=== PATIENT | female | born 1995 | race Two or more races ===

== ENCOUNTER → 2017-12-21 17:47 | Outpatient (CLI) | payer OTHER, SELFPAY ==
[2017-12-21 20:02] LABS: Chlamydia Trachomatis by PCR Negative (Negative); Neisserai gonorrhoeae by PCR Negative (Negative); Probe Check PASS; Sample Adequacy Control PASS; Specimen Processing Control PASS
[2017-12-28 08:48] LABS: HPV Reflexed? NOT INDICATED
== END ==
PROVIDERS: Visit Provider Obstetrics & Gynecology
DX: Z12.4 Encounter for screening for malignant neoplasm of cervix (principal); Z11.3 Encounter for screening for infections with a predominantly sexual mode of transmission
CPT/HCPCS: 87491; 87591; 88175; G0145

== ENCOUNTER → 2018-01-10 16:24 | Outpatient (CLI) | payer OTHER, SELFPAY ==
[2018-01-10 17:21] LABS: Absolute Lymphocyte Count 1.25 X10^3/ul (0.83-4.51); Basophil# 0.02 X10^3/uL; Basophil% 0.2 % (0-1); Eosinophil# 0.04 X10^3/uL; Eosinophils% 0.4 % (0-5); Hematocrit 35.7 % (37-47); Lymphocyte # 1.25 X10^3/ul (4.0); Mean Corp Hgb Conc 33.6 g/gl (32-36); Mean Corpuscular Hgb 31.3 pg (27.0-32.0); Mean Corpuscular Volume 93.2 fL (81-99); Mean Platelet Vol. 10.6 fl (6.2-12.0); Monocyte# 0.65 X10^3/uL; Monocyte% 7.3 % (0-10); Neutrophil # 6.96 X10^3/uL (2.7-7.7); Platelet Count 254 K/mm3 (150-450); RBC Distribution Width SD 43.9 fl (35.1-43.9); Red Blood Count 3.83 M/mm3 (4.2-5.4); White Blood Count 8.9 K/mm3 (4.4-11.0)
[2018-01-10 17:28] LABS: Color, Urine Yellow (Yellow); Glucose, Dipstick Normal (Normal); Ketone-Dipstick Negative (Negative); Leukocyte Esterase-Dipstick 500 /ul (Negative); Nitrite-Dipstick Negative (Negative); Occult Blood-Urine 10 /ul (Negative); Protein-Dipstick Negative (Negative); Urine Bilirubin Dipstick Negative (Negative); Urine Clarity Sl. Cloudy (Clear); Urine Urobilinogen Normal (Normal)
[2018-01-10 18:18] LABS: POSITIVE COUNT NO; POSITIVE DIFFERENTIAL NO; POSITIVE MORPHOLOGY NO
[2018-01-10 18:20] LABS: HIV - WCH Non-Reactive (Nonreactive); Rubella IgG 40.1 IU/mL
[2018-01-10 18:51] LABS: Amphetamine Urine VISTA NEGATIVE (<1000 ng/mL); Barbiturate Urine VISTA NEGATIVE (< 200 ng/mL); Benzodiazepine Urine VISTA NEGATIVE (< 200 ng/mL); Cocaine Urine VISTA NEGATIVE (< 300 ng/mL); Ecstacy Urine VISTA NEGATIVE (< 500 ng/mL); Methadone Urine VISTA NEGATIVE (< 300 ng/mL); PCP Urine VISTA NEGATIVE (< 25 ng/mL); THC Urine VISTA NEGATIVE (< 50 ng/mL); Vista UDS pH Range 6
[2018-01-12 11:43] LABS: HEPATITIS B SURFACE AG Negative (Negative); Hep C Antibodies <0.1 s/co ratio (0.0-0.9)
[2018-01-14 04:35] LABS: Prenatal RPR NONREACTIVE (NONREACTIVE)
== END ==
PROVIDERS: Visit Provider Obstetrics & Gynecology
DX: Z34.81 Encounter for supervision of other normal pregnancy, first trimester (principal)
CPT/HCPCS: 36415; 80307; 81002; 84443; 85025; 86703; 86762; 86803; 87340

== ENCOUNTER → 2018-01-28 13:16 | Outpatient (CLI) | payer OTHER, SELFPAY | PROVIDERS: Visit Provider Obstetrics & Gynecology | DX: Z34.81 Encounter for supervision of other normal pregnancy, first trimester (principal); R42 Dizziness and giddiness | CPT/HCPCS: 93225; 93226 ==

== ENCOUNTER → 2018-05-03 16:06 | Outpatient (CLI) | payer OTHER, SELFPAY ==
[2018-05-03 18:06] LABS: Hemoglobin 10.9 g/dl (12.0-15.0); Mean Corpuscular Hgb 33.3 pg (27.0-32.0); Mean Corpuscular Volume 100.9 fL (81-99); Platelet Count 241 K/mm3 (150-450); RBC Distribution Width SD 49.7 fl (35.1-43.9); Red Blood Count 3.27 M/mm3 (4.2-5.4); Scan Indicated on CBC? Y/N NO; White Blood Count 10.3 K/mm3 (4.4-11.0)
[2018-05-03 18:12] LABS: Glucose Challenge Gest 1H 50g 140 mg/dL (70-140)
== END ==
PROVIDERS: Visit Provider Obstetrics & Gynecology
DX: Z34.82 Encounter for supervision of other normal pregnancy, second trimester (principal)
CPT/HCPCS: 36415; 82950; 85027

== ENCOUNTER → 2018-05-09 07:07 | Outpatient (CLI) | payer OTHER, SELFPAY ==
[2018-05-09 08:01] LABS: Glucose GTT-Gestation. Fasting 93 mg/dL (<105)
[2018-05-09 09:09] LABS: Glucose GTT-Gestational 1 Hr 146 mg/dL (<190)
== END ==
PROVIDERS: Referring Provider Obstetrics & Gynecology; Visit Provider Obstetrics & Gynecology
DX: Z34.83 Encounter for supervision of other normal pregnancy, third trimester (principal); R73.09 Other abnormal glucose
CPT/HCPCS: 36415; 82951; 82952

== ENCOUNTER → 2018-05-24 16:46 | Outpatient (CLI) | payer OTHER, SELFPAY ==
[2018-05-24 18:10] LABS: Hemoglobin A1c 4.5 % (4.2-6.3)
== END ==
PROVIDERS: Visit Provider Obstetrics & Gynecology
DX: Z34.83 Encounter for supervision of other normal pregnancy, third trimester (principal)
CPT/HCPCS: 36415; 83036

== ENCOUNTER 2018-06-04 11:49 | Outpatient (CLI) | payer OTHER, SELFPAY ==
[2018-06-04 11:56] VITALS: BMI 29.9
[2018-06-04 12:13] LABS: Mucous, Urine 0 SEEN /hpf (<or=2+); Red Blood Cells-Urine 0 SEEN /hpf (0-5)
[2018-06-04 12:45] LABS: Color, Urine Yellow (Yellow); Glucose, Dipstick Normal (Normal); Ketone-Dipstick Negative (Negative); Leukocyte Esterase-Dipstick 500 /ul (Negative); Nitrite-Dipstick Negative (Negative); Occult Blood-Urine Negative /ul (Negative); Protein-Dipstick Negative (Negative); Specific Gravity, Urine 1.005 (1.002-1.030); Urine Bilirubin Dipstick Negative (Negative); Urine Clarity Clear (Clear); Urine Urobilinogen Normal (Normal)
[2018-06-04 12:48] LABS: Bacteria RARE /hpf (None Seen); Squamous Epithelial Cells - UA 0-5 SEEN /hpf (5-10); White Blood Cells 5-10 SEEN /hpf (0-5)
[2018-06-04 12:50] LABS: ROM Internal Control Test YES-OK TO RESULT pt. (Internal QC); ROM Patient Test Negative (Negative)
[2018-06-04 13:00] LABS: Fetal Fibronectin Negative
--- NOTE | 2018-06-04 17:11 | OB.TRI.NOTE ---
History of Present Illness Date of Service: 06/04/18 Was patient seen by the physician?: No Reason For Visit: OBT Date of Service: 06/04/18 Final MADHAV: 07/30/18 Final MADHAV Source: US <20 weeks Gestational age: 32 Weeks and 0 Days History of Present Illness: Complains of possible leaking fluid from the vagina today. Some pelvic pressure. Allergies shellfish derived Adverse Reaction (Verified 06/04/18 12:22) Vomiting Laboratory Studies: Laboratory Tests 06/04/18 06/04/18 06/04/18 Range/Units 12:00 12:00 12:00 Urine Color Yellow (Yellow) Urine Clarity Clear (Clear) Urine pH 7.0 (5.0 - 8.0) Ur Specific [place] 1.005 (1.002-1.030) Urine Protein Negative (Negative) mg/dl Urine Glucose (UA) Normal (Normal) mg/dl Urine Ketones Negative (Negative) mg/dl Urine Occult Blood Negative (Negative) /ul Urine Nitrite Negative (Negative) Urine Bilirubin Negative (Negative) mg/dL Urine Urobilinogen Normal (Normal) mg/dl Ur Leukocyte Esterase 500 H (Negative) /ul Urine RBC 0 SEEN (0-5) /hpf Urine WBC 5-10 SEEN (0-5) /hpf Ur Squamous Epith Cells 0-5 SEEN (5-10) /hpf Urine Bacteria RARE (None Seen) /hpf Urine Mucus 0 SEEN (<or=2+) /hpf Vag Amniotic Fld Detect Negative (Negative) Fibronectin Negative Physical Exam General: Alert, Oriented x3, Cooperative, No apparent distress Lungs: Clear to auscultation, Normal air movement Abdomen: Soft, Non Tender, Non-Distended, Gravid, Appropriate for Gestational Age Extremities:: No edema Neurological: Neuro grossly intact 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 FFN negative. UA with possible UTI but soft markers. Treated for UTI. Not in labor and no evidence or PPROM.
--- NOTE | 2018-06-04 17:16 | OB.TRI.HP_ITS ---
History of Present Illness Date of Service: 06/04/18 Was patient seen by the physician?: No Reason For Visit: OBT Date of Service: 06/04/18 Final MADHAV: 07/30/18 Final MADHAV Source: US <20 weeks Gestational age: 32 Weeks and 0 Days History of Present Illness: Complains of possible leaking fluid from the vagina today. Some pelvic pressure. Allergies shellfish derived Adverse Reaction (Verified 06/04/18 12:22) Vomiting Laboratory Studies: Laboratory Tests 06/04/18 06/04/18 06/04/18 Range/Units 12:00 12:00 12:00 Urine Color Yellow (Yellow) Urine Clarity Clear (Clear) Urine pH 7.0 (5.0 - 8.0) Ur Specific [place] 1.005 (1.002-1.030) Urine Protein Negative (Negative) mg/dl Urine Glucose (UA) Normal (Normal) mg/dl Urine Ketones Negative (Negative) mg/dl Urine Occult Blood Negative (Negative) /ul Urine Nitrite Negative (Negative) Urine Bilirubin Negative (Negative) mg/dL Urine Urobilinogen Normal (Normal) mg/dl Ur Leukocyte Esterase 500 H (Negative) /ul Urine RBC 0 SEEN (0-5) /hpf Urine WBC 5-10 SEEN (0-5) /hpf Ur Squamous Epith Cells 0-5 SEEN (5-10) /hpf Urine Bacteria RARE (None Seen) /hpf Urine Mucus 0 SEEN (<or=2+) /hpf Vag Amniotic Fld Detect Negative (Negative) Fibronectin Negative Physical Exam General: Alert, Oriented x3, Cooperative, No apparent distress Lungs: Clear to auscultation, Normal air movement Abdomen: Soft, Non Tender, Non-Distended, Gravid, Appropriate for Gestational Age Extremities:: No edema Neurological: Neuro grossly intact 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 FFN negative. UA with possible UTI but soft markers. Treated for UTI. Not in labor and no evidence or PPROM.
--- OUTSIDE RECORDS SUMMARY | 2018-09-07 10:13 | XMS RPT_ITS ---
:1995 Author Organization OHIP Support Name Relationship Address Phone UE Unavailable Unavailable Unavailable YUDELKA STEWARTLAN Unavailable [address] [place] [address] UE Unavailable Unavailable Unavailable YUDELKA STEWARTLAN Unavailable [address] + [place] [address] UE Unavailable Unavailable Unavailable YUDELKA STEWARTLAN Unavailable [address] + [place] [address] UE Unavailable Unavailable Unavailable YUDELKA STEWARTLAN Unavailable [address] + [place] [address] UE Unavailable Unavailable Unavailable TERRY, HUMBLE Unavailable [address] + [place] [address] UE Unavailable Unavailable Unavailable TERRY, HUMBLE Unavailable [address] + [place] [address] UE Unavailable Unavailable Unavailable YUDELKA STEWARTLAN Unavailable [address] + [place] [address] U Unavailable Unavailable Unavailable YUDELKA STEWARTLAN Unavailable [address] + [place] [address] U Unavailable Unavailable Unavailable YUDELKA STEWARTLAN Unavailable [address] + [place] [address] Care Team Providers Name Role Phone Bayron Blanco Attending Unavailable Bayron Blanco Referring Unavailable JOANNA DENIS Primary Care Unavailable Marisol Vargas Attending Unavailable Marisol Vargas Attending Unavailable Wagner Schwab Attending Unavailable Benekos, Marisol Referring Unavailable Benekos, Marisol Attending Unavailable Benekos, Marisol Referring Unavailable Primay Care Physicia, No Primary Care Unavailable Benekos, Marisol Attending Unavailable Primay Care Physicia, No Primary Care Unavailable Benekos, Marisol Attending Unavailable Primay Care Physicia, No Primary Care Unavailable Benekos, Marisol Attending Unavailable Benekos, Marisol Referring Unavailable Primay Care Physicia, No Primary Care Unavailable Sealmitch, Bayron Attending Unavailable Sealmitch, Bayron Referring Unavailable PROBLEMS PROBLEMS DATE TYPE CONDITION / CODE ATTENDING STATUS SOURCE 07/06/2018 Unknown Z36.85 - Encounter Marisol Vargas Active [facility] for Community screening for Hospital Streptococcus B / Repository Z36.85(ICD-10) 06/06/2018 Unknown Z03.71 - Encounter Bayron Blanco Active [facility] for suspected Community problem with Hospital amniotic cavity and Repository membrane ruled out / Z03.71(ICD-10) 05/24/2018 Unknown Z34.83 - Encounter Marisol Vargas Active [place] for supervision of Community other normal Hospital , third Repository trimester / Z34.83(ICD-10) 05/03/2018 Unknown Z34.82 - Encounter Marisol Vargas Active [place] for supervision of Community other normal Hospital , second Repository trimester / Z34.82(ICD-10) 03/02/2018 Unknown R42 - Dizziness and Wagner Schwab Active [facility] giddiness / Community R42(ICD-10) Hospital Repository 01/10/2018 Unknown Z34.81 - Encounter Marisol Vargas Active [facility] for supervision of Community other normal Hospital , first Repository trimester / Z34.81(ICD-10) 12/23/2017 Unknown Z12.4 - Encounter Bayron Blanco Active [facility] for screening for Community malignant neoplasm Hospital of cervix / Repository Z12.4(ICD-10) 12/23/2017 Unknown Z11.3 - Encounter Bayron Blanco Active [place] for screening for Community infections with a Hospital predominantly Repository sexual mode of transmission / Z11.3(ICD-10) PROCEDURES PROCEDURES No Procedure Records FoundRESULTS RESULTS Observed: 07/06/2018 Status: F Source: [facility] CULTURE, GROUP B 11:00 AM [facility] STREPTOCOCCUS REPOSITORY Comments: VAGINAL/RECTAL CLAIR Culture Group B Beta Streptococcus is not isolated. Performed By: #### M100.1800 #### [facility] [address] [place], [place], [address] URINALYSIS, COMPLETE Collected: 06/04/2018 Status: F Source: [place] 12:[address] [facility] REPOSITORY Order Comment: How was Urine Obtained? APPLICATION INTEGRATION SPECIALIST TO SPECIFY TYPE CODE TESTS RESULT OUT OF RANGE REFERENCE UNITS LAB L400.3000 Yellow COLOR Normal Yellow LAB L400.3050 Clear Normal CLARITY Clear LAB L400.3200 Normal mg/dl Normal GLUCOSE, UR Normal LAB L400.3300 Negative mg/dL Normal BILIRUBIN URINE Negative LAB L400.3400 Negative mg/dl Normal KETONE UR Negative LAB L400.3465 1.002-1.030 Normal SP.GR. DIPSTX 1.005 LAB L400.3550 5.0 - 8.0 pH UR Normal 7.0 LAB L400.3600 Negative mg/dl PROT Normal DIPSTX Negative LAB L400.3700 Normal mg/dl Normal UROBILI Normal LAB L400.3750 Negative Normal NITRITE UR Negative LAB L400.3780 Negative /ul Normal OCCULT BLOOD-UR Negative LAB L400.3800 Negative /ul High LEUK ESTERASE 500 LAB L400.4050 0-5 /hpf WBC Normal 5-10 SEEN LAB L400.4100 0-5 /hpf 0 Normal RBC-UA SEEN LAB L400.4150 5-10 /hpf SQUAM Normal EPI 0-5 SEEN LAB L400.4300 None Seen /hpf Normal BACTERIA RARE LAB L400.4350 <or=2+ /hpf 0 Normal MUCUS, URINE SEEN Performed By: #### L400.0001, L205.0000 #### [facility] [address] [place], [address] FIBRONECTIN Collected: 06/04/2018 Status: F Source: [place] 12:[address] [facility] REPOSITORY TYPE CODE TESTS RESULT OUT OF RANGE REFERENCE UNITS LAB L205.0100 Normal fFN Negative Performed By: #### L400.0001, L205.0000 #### [facility] [address] [place], [address] (ROM) RUPTURE OF Collected: 06/04/2018 Status: F Source: [facility] MEMBRANES 12:[address] [facility] REPOSITORY TYPE CODE TESTS RESULT OUT OF RANGE REFERENCE UNITS LAB L205.1310 Negative Normal ROM Negative Result Comment: Amniotic fluid not present indicates No Rupture of Membranes at time of specimen collection. Performed By: #### L205.1000, M100.0650 #### [facility] [address] [place], [address] Observed: 06/04/2018 Status: F Source: [facility] CULTURE, URINE 12:[address] [facility] REPOSITORY Has pt arrived? Y Urine Culture Culture exhibits no growth. Performed By: #### L205.1000, M100.0650 #### [facility] [address] [place], [address] HEMOGLOBIN A1C Collected: 05/24/2018 Status: F Source: [facility] 4:[address] [facility] REPOSITORY TYPE CODE TESTS RESULT OUT OF RANGE REFERENCE UNITS LAB L501.9985 4.2-6.3 % Normal HGB A1C 4.5 Performed By: #### L501.9985 #### [facility] [address] [place], [address] GESTATIONAL GTT 3HR Collected: 05/09/2018 Status: F Source: [facility] 100G 7:[address] [facility] REPOSITORY Order Comment: Is Patient Fasting? Y TYPE CODE TESTS RESULT OUT OF RANGE REFERENCE UNITS LAB L501.0650 <105 mg/dL Normal GLU 93 GTT-FASTING Result Comment: GLUCOSE TOLERANCE TEST FOR Reference Interval GESTATIONAL DIABETES Fasting <105 mg/dL 1 hour <190 mg/dl 2 hour <165 mg/dl 3 hour <145 mg/dl LAB L501.0660 <190 mg/dL Normal GLU GTT- 1HR 146 Performed By: #### L500.4710 #### [facility] [address] [place], [address] CBC-COMPLETE BLOOD CNT Collected: 05/03/2018 Status: F Source: [facility] NO DIFF 4:[address] [facility] REPOSITORY TYPE CODE TESTS RESULT OUT OF RANGE REFERENCE UNITS LAB L100.1000 4.4-11.0 K/mm3 Normal WBC 10.3 LAB L100.1200 4.2-5.4 M/mm3 Low RBC 3.27 LAB L100.1300 12.0-15.0 g/dl Low HGB 10.9 LAB L100.1400 37-47 % Low HCT 33.0 LAB L100.1500 81-99 fL High MCV 100.9 LAB L100.1600 27.0-32.0 pg High MCH 33.3 LAB L100.1700 32-36 g/gl Normal MCHC 33.0 LAB L100.1810 11.6-14.6 % Normal RDW CV 14.0 LAB L100.1820 35.1-43.9 fl High RDW SD 49.7 LAB L100.1900 150-450 K/mm3 Normal PLT 241 LAB L100.2000 6.2-12.0 fl Normal MPV 11.0 Performed By: #### L100.0500 #### [facility] [address] [place], [address] GLUCOSE CHALLENGE GEST Collected: 05/03/2018 Status: F Source: [place] 1H 50G 4:[address] [facility] REPOSITORY TYPE CODE TESTS RESULT OUT OF RANGE REFERENCE UNITS LAB L501.0250 70-140 mg/dL Normal GLU GEST 140 50g 1H Performed By: #### L501.0250 #### [facility] [address] [place], [address] OFFICE VISIT (FAMILY Observed: 02/08/2018 Status: UNK Source: [facility]) 2:43 PM [facility] REPOSITORY Chief Complaint Visit For: Other New Patient establishing care, wants to discuss depression, needs work form filled out. 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 Cardiovascular: palpitations, but no chest pain and no syncope. Respiratory: no cough, no postural nocturnal dyspnea, no shortness of breath during exertion and no wheezing. Gastrointestinal:. IBS - intermittent problem. Genitourinary:. hx of recurrent UTI when younger. Integumentary: no new skin lesions, no rashes and no skin wound. The patient presents with complaints of headache (hx migraines - 1-2 per month no hx of neurology). Psychiatric: depression, but no anxiety . Has very mild sleep apnea. 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) History of Lyme disease (V12.09) (Z86.19) History of Low blood pressure reading (796.3) (R03.1) Surgical History History of Oral Surgery Tooth Extraction [place] Tooth Family History Family history of gestational diabetes mellitus (GDM) (V18.0) (Z83.3) Family history of migraine headaches (V17.2) (Z82.0) Family history of Chronic mental illness Family history of autoimmune disorder (V19.8) (Z83.2) Family history of thyroid disease (V18.19) (Z83.49) Family history of autoimmune disorder (V19.8) (Z83.2) Family history of thyroid disease (V18.19) (Z83.49) Social History No alcohol use Non-smoker (V49.89) (Z78.9) Allergies Shellfish Recorded By: Jemima García; 02/08/2018 2:11:30 PM Current Meds Levothyroxine Sodium 50 MCG Oral Tablet; Therapy: (Recorded:72Hqt5260) to Recorded Dispense: 0 Days ; #: Sufficient TABS; Refill: 0; EVA = N; Record; Last Updated By: Jemima García; 02/08/2018 2:11:30 PM Pre-Noelle TABS; Therapy: (Recorded:86Xcr0774) to Recorded Dispense: 0 Days ; #: Sufficient TABS; Refill: 0; EVA = N; Record; Last Updated By: Jemima García; 02/08/2018 2:11:30 PM Zoloft 50 MG Oral Tablet; Therapy: (Recorded:93Ytj7847) to Recorded Dispense: 0 Days ; #: Sufficient TABS; Refill: 0; EVA = N; Record; Last Updated By: Jemima García; 02/08/2018 2:11:30 PM Vitals Vital Signs Recorded: 51Ykt6644 02:11PM Iwbnbmgbeqt83.4 F Heart Ucof730 Hiygttqmslf47 Jeemgxtd45 Qznwkapkn73 Height4 ft 10 in Hadusm567 lb BMI Tsvggnngor32.13 BSA Calculated1.49 O2 Empqvdzoox36 Physical Exam NAD Neck supple - no LAD or TM Lungs clear CV reg - no M, normal pedal pulses Ext without edema Skin clear without ulcerations Normal mood and affect Diagnoses/Problems Family history of gestational diabetes mellitus (GDM) (V18.0) (Z83.3) : Mother Adult hypothyroidism (244.9) (E03.9) Encounter for preventive health examination (V70.0) (Z00.00) Depression, unspecified depression type (311) (F32.9) Provider Impressions Adacel was done in 2010 Recent labs through ENTRY LEVEL ASSISTANT MANAGER documented immunity to MMR Patient Discussion/Summary Form completed for work - please call when refills are due. End of Encounter Meds Levothyroxine Sodium 50 MCG Oral Tablet; Therapy: (Recorded:97Pbv7790) to Recorded Pre-Noelle TABS; Therapy: (Recorded:36Ylv9623) to Recorded Zoloft 50 MG Oral Tablet (Sertraline HCl); Therapy: (Recorded:11Ufs0446) to Recorded Signatures Electronically signed by : Joanna Escoto MD; Feb 08 2018 2:43PM EST (Author) URINE DRUG SCREEN Collected: 01/10/2018 Status: F Source: [facility] (ELSY) 4:[address] [facility] REPOSITORY Order Comment: List of Drugs Taken or Suspected? UNK TYPE CODE TESTS RESULT OUT OF RANGE REFERENCE UNITS LAB L505.0075 TO BE Normal CONFIRMED Result Comment: CONFIRMATORY TESTING FOR ALL POSITIVE URINE DRUG SCREEN RESULTS WILL ONLY BE SENT OUT UPON PHYSICIAN ORDER. VISTA Urine Drug Screen methods provide only preliminary analytical test results. A more specific alternate chemical method must be used in order to obtain a confirmed analytical result. Gas chromatography/mass spectrometery (GC/MS) is the preferred confirmatory method. Clinical consideration and professional judgement should be applied to any drug of abuse test result, particularly when preliminary positive results are used. URINE TCA TESTING MUST BE ORDERED SEPARATELY. USE TEST MNEMONIC: [facility] LAB L505.5005 VISTA UDS PH 6 Normal LAB L505.5015 <1000 ng/mL AMPHETAMINES Normal NEGATIVE LAB L505.5025 < 200 ng/mL BARBITIURATES Normal NEGATIVE LAB L505.5035 < 200 ng/mL BENZODIAZIPINE Normal NEGATIVE LAB L505.5045 < 300 ng/mL COCAINE Normal NEGATIVE LAB L505.5055 < 500 ng/mL ECSTACY Normal NEGATIVE LAB L505.5065 < 300 ng/mL METHADONE Normal NEGATIVE LAB L505.5075 < 300 ng/mL OPIATES Normal NEGATIVE LAB L505.5085 < 25 ng/mL PCP Normal NEGATIVE LAB L505.5095 < 50 ng/mL THC Normal NEGATIVE Performed By: #### L505.5000 #### [facility] [address] [place], [address] THYROID STIM HORMONE Collected: 01/10/2018 Status: F Source: [place] (TSH) 4:[address] [facility] REPOSITORY TYPE CODE TESTS RESULT OUT OF RANGE REFERENCE UNITS LAB L501.9520 0.358-3.74 uIU/mL Normal TSH 2.00 Performed By: #### L501.9520 #### [facility] [place], [address] URINALYSIS, ROUTINE Collected: 01/10/2018 Status: F Source: [place] (DIPSTICK) 4:[address] [facility] REPOSITORY Order Comment: How was Urine Obtained? Urine, Random TYPE CODE TESTS RESULT OUT OF RANGE REFERENCE UNITS LAB L400.3000 Yellow COLOR Normal Yellow LAB L400.3050 Clear Normal CLARITY Sl. Cloudy LAB L400.3200 Normal mg/dl Normal GLUCOSE, UR Normal LAB L400.3300 Negative mg/dL Normal BILIRUBIN URINE Negative LAB L400.3400 Negative mg/dl Normal KETONE UR Negative LAB L400.3465 1.002-1.030 Normal SP.GR. DIPSTX 1.010 LAB L400.3550 5.0 - 8.0 pH UR Normal 7.0 LAB L400.3600 Negative mg/dl PROT Normal DIPSTX Negative LAB L400.3700 Normal mg/dl Normal UROBILI Normal LAB L400.3750 Negative Normal NITRITE UR Negative LAB L400.3780 Negative /ul High 10 OCCULT BLOOD-UR LAB L400.3800 Negative /ul High LEUK ESTERASE 500 Performed By: #### L400.2010 #### [facility] [address] [place], [place], [id number] CBC W/DIFF, AUTOMATED Collected: 01/10/2018 Status: F Source: [place] 4:[address] [facility] REPOSITORY TYPE CODE TESTS RESULT OUT OF RANGE REFERENCE UNITS LAB L100.1000 4.4-11.0 K/mm3 Normal WBC 8.9 LAB L100.1200 4.2-5.4 M/mm3 Low RBC 3.83 LAB L100.1300 12.0-15.0 g/dl Normal HGB 12.0 LAB L100.1400 37-47 % Low HCT 35.7 LAB L100.1500 81-99 fL Normal MCV 93.2 LAB L100.1600 27.0-32.0 pg Normal MCH 31.3 LAB L100.1700 32-36 g/gl Normal MCHC 33.6 LAB L100.1810 11.6-14.6 % Normal RDW CV 13.0 LAB L100.1820 35.1-43.9 fl Normal RDW SD 43.9 LAB L100.1900 150-450 K/mm3 Normal PLT 254 LAB L100.2000 6.2-12.0 fl Normal MPV 10.6 LAB L100.2100 47-70 % High NEUT% 78.0 LAB L100.2200 19-41 % Low LY% 14.0 LAB L100.2300 0-10 % Normal MONO% 7.3 LAB L100.2400 0-5 % Normal EO% 0.4 LAB L100.2500 0-1 % Normal BASO% 0.2 LAB L100.2550 0.0-0.9 % Normal IM GRAN % 0.100 Result Comment: IG% - Immature Granulocytes (promyelocytes, myelocytes and metamyelocytes) > 1% indicates that a LEFT SHIFT is Present. LAB L100.2620 2.0-7.7 X10 3/uL Normal Absolute Neut 7.0 LAB L100.2720 0.83-4.51 X10 3/ul Normal Absolute Lymph 1.25 Performed By: #### L100.0100 #### [facility] [address] [place], [place], [id number] RUBELLA IGG Collected: 01/10/2018 Status: F Source: [place] 4:[address] [facility] REPOSITORY TYPE CODE TESTS RESULT OUT OF RANGE REFERENCE UNITS LAB L509.4000 IU/mL Normal Rubella IgG 40.1 Result Comment: Antibody results Interpretation of Immune Status < 5 IU/ml Presumed Non-immune 5 - < 10 IU/ml Equivocal > or = 10 IU/ml Presumed Immune Performed By: #### L509.4000, L3890.6005 #### [facility] [address] [place], [place], [address] HIV - [facility] Collected: 01/10/2018 Status: F Source: [place] 4:[address] [facility] REPOSITORY TYPE CODE TESTS RESULT OUT OF RANGE REFERENCE UNITS LAB L3890.6005 Nonreactive Normal HIV - [facility] Non-Reactive Performed By: #### L509.4000, L3890.6005 #### [facility] [facility] [place], [place], [address] T AND S-NO Collected: 01/10/2018 Status: F Source: [place] CHARGE W/PNP 4:[address] [facility] REPOSITORY Order Comment: Reason for Type AND Screen/Red Cells: Surgery? N TYPE CODE TESTS RESULT OUT OF RANGE REFERENCE UNITS LAB B10.0800 O Normal BLOOD POSITIVE TYPE GEL LAB B100.4050 Normal Ab SCREEN NEGATIVE GEL Performed By: #### B100.7550 #### [facility] [place], [place], [address] HEPATITIS B SURFACE Collected: 01/10/2018 Status: F Source: [place] AG 4:[address] [facility] REPOSITORY TYPE CODE TESTS RESULT OUT OF RANGE REFERENCE UNITS LAB L3100.0400 Negative Normal HB Negative SURF AG Result Comment: Performed at: - [facility] [id number] Supervisor Electronics Inspection: Salo Aponte PhD, Phone: [phone] Performed By: #### L3100.0390, L3100.0625 #### [facility] (refer to report for specific site) refer to report for address and phone number HEPATITIS C ANTIBODIES Collected: 01/10/2018 Status: F Source: [place] 4:[address] [facility] REPOSITORY TYPE CODE TESTS RESULT OUT OF RANGE REFERENCE UNITS LAB L3100.0650 0.0-0.9 s/co ratio Normal HEP C AB <0.1 Result Comment: Negative: < 0.8 Indeterminate: 0.8 - 0.9 Positive: > 0.9 The CDC recommends that a positive HCV antibody result be followed up with a HCV Nucleic Acid Amplification test (747320). Performed By: #### L3100.0390, L3100.0625 #### [facility] (refer to report for specific site) refer to report for address and phone number RPR Collected: 01/10/2018 Status: F Source: [place] 4:[address] [facility] REPOSITORY TYPE CODE TESTS RESULT OUT OF REFERENCE UNITS RANGE LAB L700.5100 NONREACTIVE Normal RPR NONREACTIVE Performed By: #### L700.5100 #### [facility] [address] [place], [address] CT/NG [facility] BY PCR Collected: 12/21/2017 Status: F Source: [place] 2:[address] [facility] REPOSITORY TYPE CODE TESTS RESULT OUT OF RANGE REFERENCE UNITS LAB L8200.2100 Negative Normal Chlam Negative Trac PCR LAB L8200.2200 Negative Normal NG by Negative PCR Performed By: #### L8200.2000 #### [facility] [address] [place], [address] PAP I-G W/RFX HRHPV Collected: 12/21/2017 Status: F Source: [place] 2:[address] [facility] REPOSITORY Order Comment: CYTOLOGY INFORMATION: - CLINICAL INFORMATION: - DATE LMP/MENOPAUSE: LMP - COLLECTION VIAL: Thin Prep Vial - ENTRY LEVEL ASSISTANT MANAGER SOURCE: CERVICAL/ENDOCERVICAL - COLLECTION TECHNIQUE: BRUSH/SPATULA Specimen Comment: [id number] Specimen Comment: No. of containers..01 ThinPrep Vial TYPE CODE TESTS RESULT OUT OF RANGE REFERENCE UNITS LAB L7400.0800 . Normal DIAGN Comment Result Comment: NEGATIVE FOR INTRAEPITHELIAL LESION AND MALIGNANCY. THIS SPECIMEN WAS RESCREENED PART OF OUR PHOTOGRAPHIC EQUIPMENT INSPECTOR PROGRAM. LAB L7400.0900 . Normal ADEQ Comment Result Comment: Satisfactory for evaluation. No endocervical component is identified. An endocervical component is not commonly seen in the patient. LAB L7400.1400 . Normal PERFORM Comment Result Comment: Leesa Honeycutt, Sash Repairer ([facility]) LAB L7400.1500 . Normal QC Comment REV Result Comment: Radha Sen, Sash Repairer ([facility]) LAB L7400.2575 . Normal TEST METHOD Comment Result Comment: This liquid based ThinPrep(R) pap test was screened with the use of an image guided system. LAB L7400.2600 . Normal . COMM LAB L7400.2700 . Normal PAPSMR Comment Result Comment: The Pap smear is a screening test designed to aid in the detection of premalignant and malignant conditions of the uterine cervix. It is not a diagnostic procedure and should not be used as the sole means of detecting cervical cancer. Both false-positive and false-negative reports do occur. LAB L7400.2800 . Normal HPV RFLX Comment Result Comment: The HPV DNA reflex criteria were not met with this specimen result therefore, no HPV testing was performed. Performed at: [facility] [id number] Supervisor Electronics Inspection: Melissa Koehler MD, Phone: [phone] Performed By: #### L7400.0350 #### [facility] (refer to report for specific site) refer to report for address and phone number ALLERGIES ALLERGIES DATE TYPE / CODE NAME / CODE REACTION SEVERITY SOURCE 06/04/2018 Drug shellfish Vomiting Unknown [facility] Allergy/416 derived/[id number] [facility] 033065(SNOM 54(RXNORM) Repository ED CT) ENCOUNTERS ENCOUNTERS ADMIT/DISCHARGE ACCOUNT ADMITTING ENCOUNTER LOCATION SOURCE NUMBER CLASS 07/06/2018 [id number] Ambulatory [facility] 2 [facility] ing:LABSPEC Repository 06/04/2018/ [id number] Ambulatory [facility] 8 3 [facility] ing:WPOUTRoom Repository : OBT06 05/24/2018 [id number] Ambulatory [place] [facility] 6 [facility] ing:WOBLAB Repository 05/09/2018 [id number] Ambulatory [facility] 3 [facility] ing:LAB Repository 05/03/2018 [id number] Ambulatory [place] [facility] 7 [facility] ing:WOBLAB Repository 01/28/2018 [id number] Ambulatory BMSBuilding:W [facility] 3 [facility] Repository 01/28/2018 [id number] Ambulatory [place] [facility] 3 [facility] ing:PSN Repository 01/10/2018 [id number] Ambulatory [place] [facility] 5 [facility] ing:WOBLAB Repository 12/21/2017 [id number] Ambulatory [place] 3 [facility] ing:LABSPEC Repository PAYERS PAYERS ENCOUNTER GUARANTOR PAYER SUBSCRIBER SOURCE 07/06/2018 LAITH A Primary HUMBLE WYNNEDOB: [facility] [id number] Insurance:[id number] [id number] Repository [place], [place] Date:0672-86-09VY [address] [address]Qbk: [phone], [place] [phone] () [phone]: 07/06/2018 Secondary NOT GIVENUNK [place] Insurance:SELF PAY [facility] Number: Effective Repository Date:2018-07-06 06/04/2018 LAITH A Primary HUMBLE WYNNEDOB: [facility] [id number] Insurance:[facility] [id number]. [facility] Number: [facility] [id number] Repository [place], [place] Date:8497-20-03AC [address] [address]Eke: [phone], [place] [phone] () [phone]: 06/04/2018 Secondary NOT GIVENUNK [facility] Insurance:SELF PAY [facility] Number: Effective Repository Date:2018-06-04 05/24/2018 LAITH A Primary HUMBLE WYNNEDOB: [place] [id number] [facility] [id number]. [facility] Number: [facility] [id number] Repository [place] Date:3530-67-53RJ [address] [address]Aft: [phone], [place] [phone] () [phone]: 05/24/2018 Secondary NOT GIVENUNK [place] Insurance:SELF PAY [facility] Number: Effective Repository Date:2018-05-24 05/09/2018 LAITH A Primary HUMBLE WYNNEDOB: [facility] [id number] Insurance:[facility] [id number]. [facility] Medical Center Number: [facility] [id number] Repository [place], [place] Date:2246-60-13ZJ [address]Toc: (147) [phone], [place] [phone] () [phone]: 05/09/2018 Secondary NOT GIVENUNK [place] Insurance:SELF PAY [facility] Hospital Number: Effective Repository Date:2018-05-04 05/03/2018 LAITH A Primary HUMBLE WYNNEDOB: [place] [id number] Insurance:GPATPA [id number] [id number] Repository [place] Date:1619-13-63VQ [address] [address]Bmu: [phone]) [phone], [place] [phone] () [phone]: 05/03/2018 Secondary NOT GIVENUNK [place] Insurance:SELF PAY [facility] Hospital Number: Effective Repository Date:2018-05-03 01/28/2018 LAITH A Primary HUMBLE WYNNEDOB: [place] [id number] Insurance:GPATPA [id number] [facility] Number: Hospital DRUNIT [id number] Repository [place], [place] Date:1890-00-34PC [address] [address]Gwg: (103) [phone], [place] [phone] () [phone]: 01/28/2018 Secondary NOT GIVENUNK [place] Insurance:SELF PAY [facility] Hospital Number: Effective Repository Date:2018-01-28 01/28/2018 LAITH A Primary HUMBLE WYNNEDOB: [place] [id number] Insurance:GPATPA [id number] Community [employer] CERCOPolicy Number: [facility] [id number] Repository [place] Date:6195-95-42XE [address] [address]Xjo: [phone] [id number], [place] [phone] (HP) [phone]: 01/28/2018 Secondary NOT GIVENUNK [place] Insurance:SELF PAY [facility] Hospital Number: Effective Repository Date:2018-01-28 01/10/2018 LAITH [id number] Primary HUMBLE SOLOMON [place] [employer]AD[employer] Insurance:[facility] DRUNIT CERCOPolic Number: [place], [place] [id number] Repository [address]Oit: ([phone]) Date:6501-08-36QR [phone] (HP) [id number], [place] [address]GZ: 01/10/2018 Secondary NOT GIVENUNK [place] Insurance:SELF PAY [facility] Hospital Number: Effective Repository Date:2018-01-10 12/21/2017 LAITH [id number] Primary HUMBLEBO CARBAJAL [place] MEADOWCREELLI Insurance:GPAA [facility] Number: [place], [place] [id number] Repository [address]Wul: ([phone]) Date:3951-32-14MF [phone] (HP) [id number], [place] [address]UU: 12/21/2017 Secondary NOT GIVENUNK [place] Insurance:SELF PAY [facility] Hospital Number: Effective Repository Date:2017-12-21
== END 2018-06-04 13:40 | disposition home or self-care (01) ==
LOC: WPOUT 11:52 → WP 11:53
PROVIDERS: Referring Provider Obstetrics & Gynecology; Visit Provider Obstetrics & Gynecology
DX: Z03.71 Encounter for suspected problem with amniotic cavity and membrane ruled out (principal); O26.893 Other specified pregnancy related conditions, third trimester; R10.2 Pelvic and perineal pain; Z3A.32 32 weeks gestation of pregnancy
CPT/HCPCS: 59050; 81001; 82731; 84112; 87086; 99218; G0378

== ENCOUNTER → 2018-07-06 13:30 | Outpatient (CLI) | payer OTHER, SELFPAY ==
--- OUTSIDE RECORDS SUMMARY | 2018-09-10 10:11 | XMS RPT_ITS ---
:1995 Author Organization OHIP Support Name Relationship Address Phone UE Unavailable Unavailable Unavailable HUMBLE STEWART Unavailable [address] + [place] [address] UE Unavailable Unavailable Unavailable YUDELKA STEWARTLAN Unavailable [address] + [place] [address] UE Unavailable Unavailable Unavailable YUDELKA STEWARTLAN Unavailable [address] + [place] [address] UE Unavailable Unavailable Unavailable YUDELKA STEWARTLAN Unavailable [address] + [place] [address] UE Unavailable Unavailable Unavailable YUDELKA STEWARTLAN Unavailable [address] + [place] [address] UE Unavailable Unavailable Unavailable YUDELKA STEWARTLAN Unavailable [address] + [place] [address] UE Unavailable Unavailable Unavailable HUMBLE STEWART Unavailable [address] + [place] [address] U Unavailable Unavailable Unavailable YUDELKA STEWARTLAN Unavailable [address] + [place] [address] U Unavailable Unavailable Unavailable YUDELKA STEWARTLAN Unavailable [address] + [place] [address] Care Team Providers Name Role Phone Bayron Blanco Attending Unavailable Bayron Blanco Referring Unavailable JOANNA DENIS Primary Care Unavailable Marisol Vargas Attending Unavailable Bayron Blanco Attending Unavailable Bayron Blanco Referring Unavailable Benekos, Marisol Attending Unavailable Benekos, Marisol Attending Unavailable Benekos, Marisol Referring Unavailable Primay Care Physicia, No Primary Care Unavailable Wagner Schwab Attending Unavailable Benekos, Marisol Referring Unavailable Benekos, Marisol Attending Unavailable Primay Care Physicia, No Primary Care Unavailable Benekos, Marisol Attending Unavailable Benekos, Marisol Referring Unavailable Primay Care Physicia, No Primary Care Unavailable Benekos, Marisol Attending Unavailable Primay Care Physicia, No Primary Care Unavailable PROBLEMS PROBLEMS DATE TYPE CONDITION / CODE ATTENDING STATUS SOURCE 07/06/2018 Unknown Z36.85 - Encounter Marisol Vargas Active [place] for Community screening for Hospital Streptococcus B / Repository Z36.85(ICD-10) 06/06/2018 Unknown Z03.71 - Encounter Bayron Blanco Active [place] for suspected Community problem with Hospital amniotic cavity and Repository membrane ruled out / Z03.71(ICD-10) 05/24/2018 Unknown Z34.83 - Encounter Marisol Vargas Active [place] for supervision of Community other normal Hospital , third Repository trimester / Z34.83(ICD-10) 05/03/2018 Unknown Z34.82 - Encounter Marisol Vargas Active [place] for supervision of Community other normal Hospital [...] Unknown Z11.3 - Encounter Bayron Blanco Active [place] for screening for Community infections with a Hospital predominantly Repository sexual mode of transmission / Z11.3(ICD-10) PROCEDURES PROCEDURES No Procedure Records FoundRESULTS RESULTS Observed: 07/06/2018 Status: F Source: [place] CULTURE, GROUP B 11:00 AM [facility] STREPTOCOCCUS REPOSITORY Comments: VAGINAL/RECTAL CLAIR Culture Group B Beta Streptococcus is not isolated. Performed By: #### M100.1800 #### [facility] Laboratory [address] [place], [place], [address] URINALYSIS, COMPLETE Collected: 06/04/2018 Status: F Source: [place] 12:00 PM [facility] REPOSITORY Order Comment: How was Urine Obtained? COLD ROLL OPERATOR TO SPECIFY TYPE CODE TESTS RESULT OUT [...] SEEN Performed By: #### L400.0001, L205.0000 #### [facility] Laboratory [address], [address] FIBRONECTIN Collected: 06/04/2018 Status: F Source: [place] 12:00 PM [facility] REPOSITORY TYPE CODE TESTS RESULT OUT OF RANGE REFERENCE UNITS LAB L205.0100 Normal fFN Negative Performed By: #### L400.0001, L205.0000 #### [facility] Laboratory [address] [place], [address] (ROM) RUPTURE OF Collected: 06/04/2018 Status: F Source: [place] MEMBRANES 12:00 PM [facility] REPOSITORY TYPE CODE TESTS RESULT OUT OF RANGE REFERENCE UNITS LAB L205.1310 Negative Normal ROM Negative Result Comment: Amniotic fluid not present indicates No Rupture of Membranes at time of specimen collection. Performed By: #### L205.1000, M100.0650 #### [facility] Laboratory [address] [place], [address] Observed: 06/04/2018 Status: F Source: [place] CULTURE, URINE 12:00 PM [facility] REPOSITORY Has pt arrived? Y Urine Culture Culture exhibits no growth. Performed By: #### L205.1000, M100.0650 #### [facility] Laboratory [address] [place], [address] HEMOGLOBIN A1C Collected: 05/24/2018 Status: F Source: [place] 4:50 PM [facility] REPOSITORY TYPE CODE TESTS RESULT OUT OF RANGE REFERENCE UNITS LAB L501.9985 4.2-6.3 % Normal HGB A1C 4.5 Performed By: #### L501.9985 #### [facility] Laboratory [address] [place], [address] GESTATIONAL GTT 3HR Collected: 05/09/2018 Status: F Source: [place] 100G 7:15 AM [facility] REPOSITORY Order Comment: Is Patient Fasting? Y TYPE CODE TESTS RESULT OUT OF RANGE REFERENCE UNITS LAB L501.0650 <105 mg/dL Normal GLU 93 GTT-FASTING Result Comment: GLUCOSE TOLERANCE TEST FOR Reference Interval GESTATIONAL DIABETES Fasting <105 mg/dL 1 hour <190 mg/dl 2 hour <165 mg/dl 3 hour <145 mg/dl LAB L501.0660 <190 mg/dL Normal GLU GTT- 1HR 146 Performed By: #### L500.4710 #### [facility] Laboratory [address] [place], [address] CBC-COMPLETE BLOOD CNT Collected: 05/03/2018 Status: F Source: [place] NO DIFF 4:15 PM [facility] REPOSITORY TYPE CODE TESTS RESULT OUT OF [...] MPV 11.0 Performed By: #### L100.0500 #### [facility] Laboratory [address] [place], [address] GLUCOSE CHALLENGE GEST Collected: 05/03/2018 Status: F Source: [place] 1H 50G 4:15 PM [facility] REPOSITORY TYPE CODE TESTS RESULT OUT OF RANGE REFERENCE UNITS LAB L501.0250 70-140 mg/dL Normal GLU GEST 140 50g 1H Performed By: #### L501.0250 #### [facility] Laboratory [address], [address] OFFICE VISIT (FAMILY Observed: 02/08/2018 Status: UNK Source: [facility]) 2:43 PM [facility] REPOSITORY Chief Complaint Visit For: Other New Patient establishing care, wants to discuss depression, needs work form filled out. 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 ANALYST was positive for immunity for MMR 15 [...] History History of Oral Surgery Tooth Extraction [place] Family History Family history of gestational [...] Levothyroxine Sodium 50 MCG Oral Tablet; Therapy: (Recorded:73Kdk4927) to Recorded Dispense: 0 Days ; #: Sufficient TABS; Refill: 0; EVA = N; Record; Last Updated By: Jemima García; 02/08/2018 2:11:30 PM Pre-Noelle TABS; Therapy: (Recorded:69Mik6765) to Recorded Dispense: 0 Days ; #: Sufficient TABS; Refill: 0; EVA = N; Record; Last Updated By: Jemima García; 02/08/2018 2:11:30 PM Zoloft 50 MG Oral Tablet; Therapy: (Recorded:28Hei4092) to Recorded Dispense: 0 Days ; #: Sufficient TABS; Refill: 0; EVA = N; Record; Last Updated By: Jemima García; 02/08/2018 2:11:30 PM Vitals Vital Signs Recorded: 13Nky1236 02:11PM Tzmqdwvfknx56.4 F Heart Pzpe758 Xddqyikwgsw14 Qzhjsfqs43 Gvzimblnp14 Height4 ft 10 in Shqmhk803 lb BMI Psyvecdcln71.13 BSA Calculated1.49 O2 Prvhbowqhs02 Physical Exam NAD Neck supple - no [...] was done in 2010 Recent labs through STREET SWEEPER documented immunity to MMR Patient Discussion/Summary Form completed for work - please call when refills are due. End of Encounter Meds Levothyroxine Sodium 50 MCG Oral Tablet; Therapy: (Recorded:79Okt0557) to Recorded Pre-Noelle TABS; Therapy: (Recorded:82Kfg9696) to Recorded Zoloft 50 MG Oral Tablet (Sertraline HCl); Therapy: (Recorded:93Vdw8231) to Recorded Signatures Electronically signed by : Joanna Escoto MD; Feb 08 2018 2:43PM EST (Author) URINE DRUG SCREEN Collected: 01/10/2018 Status: F Source: [place] (ELSY) 4:25 PM [facility] REPOSITORY Order Comment: List of Drugs Taken [...] Normal NEGATIVE Performed By: #### L505.5000 #### [facility] Laboratory [address] [place], [address] THYROID STIM HORMONE Collected: 01/10/2018 Status: F Source: [place] (TSH) 4:25 PM [facility] REPOSITORY TYPE CODE TESTS RESULT OUT OF RANGE REFERENCE UNITS LAB L501.9520 0.358-3.74 uIU/mL Normal TSH 2.00 Performed By: #### L501.9520 #### [facility] Laboratory [facility] [place], [address] URINALYSIS, ROUTINE Collected: 01/10/2018 Status: F Source: [place] (DIPSTICK) 4:25 PM [facility] REPOSITORY Order Comment: How was Urine Obtained? [...] ESTERASE 500 Performed By: #### L400.2010 #### [facility] Laboratory [address] [place], [place], [id number] CBC W/DIFF, AUTOMATED Collected: 01/10/2018 Status: F Source: [place] 4:25 PM [facility] REPOSITORY TYPE CODE TESTS RESULT OUT OF [...] Lymph 1.25 Performed By: #### L100.0100 #### [facility] Laboratory [address] [place], [place], [address] RUBELLA IGG Collected: 01/10/2018 Status: F Source: [place] 4:25 PM [facility] REPOSITORY TYPE CODE TESTS RESULT OUT OF RANGE REFERENCE UNITS LAB L509.4000 IU/mL Normal Rubella IgG 40.1 Result Comment: Antibody results Interpretation of Immune Status < 5 IU/ml Presumed Non-immune 5 - < 10 IU/ml Equivocal > or = 10 IU/ml Presumed Immune Performed By: #### L509.4000, L3890.6005 #### [facility] Laboratory [address] [place], [place], [address] HIV - WCH Collected: 01/10/2018 Status: F Source: [place] 4:25 PM [facility] REPOSITORY TYPE CODE TESTS RESULT OUT OF RANGE REFERENCE UNITS LAB L3890.6005 Nonreactive Normal HIV - W[facility] Non-Reactive Performed By: #### L509.4000, L3890.6005 #### [facility] Laboratory [facility] [facility] [place], [place], [address] T AND S-NO Collected: 01/10/2018 Status: F Source: [place] CHARGE W/PNP 4:25 PM [facility] REPOSITORY Order Comment: Reason for Type AND Screen/Red Cells: Surgery? N TYPE CODE TESTS RESULT OUT OF RANGE REFERENCE UNITS LAB B10.0800 O Normal BLOOD POSITIVE TYPE GEL LAB B100.4050 Normal Ab SCREEN NEGATIVE GEL Performed By: #### B100.7550 #### [facility] Laboratory [facility] [place], [place], [address] HEPATITIS B SURFACE Collected: 01/10/2018 Status: F Source: [place] AG 4:25 PM [facility] REPOSITORY TYPE CODE TESTS RESULT OUT OF RANGE REFERENCE UNITS LAB L3100.0400 Negative Normal HB Negative SURF AG Result Comment: Performed at: - [facility] [id number] Consumer Affairs Specialist: Salo Aponte PhD, Phone: [phone] Performed By: #### L3100.0390, L3100.0625 #### [facility] (refer to report for specific site) refer to report for address and phone number HEPATITIS C ANTIBODIES Collected: 01/10/2018 Status: F Source: [place] 4:25 PM [facility] REPOSITORY TYPE CODE TESTS RESULT OUT OF RANGE REFERENCE UNITS LAB L3100.0650 0.0-0.9 s/co ratio Normal HEP C AB <0.1 Result Comment: Negative: < 0.8 Indeterminate: 0.8 - 0.9 Positive: > 0.9 The CDC recommends that a positive HCV antibody result be followed up with a HCV Nucleic Acid Amplification test (403326). Performed By: #### L3100.0390, L3100.0625 #### [facility] (refer to report for specific site) refer to report for address and phone number RPR Collected: 01/10/2018 Status: F Source: [place] 4:25 PM [facility] REPOSITORY TYPE CODE TESTS RESULT OUT OF REFERENCE UNITS RANGE LAB L700.5100 NONREACTIVE Normal RPR NONREACTIVE Performed By: #### L700.5100 #### [facility] Laboratory [address] [place], [address] CT/NG WCH BY PCR Collected: 12/21/2017 Status: F Source: [place] 2:00 PM [facility] REPOSITORY TYPE CODE TESTS RESULT OUT OF RANGE REFERENCE UNITS LAB L8200.2100 Negative Normal Chlam Negative Trac PCR LAB L8200.2200 Negative Normal NG by Negative PCR Performed By: #### L8200.2000 #### [facility] Laboratory [address] [place], [address] PAP I-G W/RFX HRHPV Collected: 12/21/2017 Status: F Source: [place] 2:00 PM [facility] REPOSITORY Order Comment: CYTOLOGY INFORMATION: - CLINICAL INFORMATION: - DATE LMP/MENOPAUSE: LMP - COLLECTION VIAL: Thin Prep Vial - STREET SWEEPER SOURCE: CERVICAL/ENDOCERVICAL - COLLECTION TECHNIQUE: BRUSH/SPATULA Specimen Comment: [id number] Specimen Comment: No. of containers..01 ThinPrep Vial TYPE CODE TESTS RESULT OUT OF RANGE REFERENCE UNITS LAB L7400.0800 . Normal DIAGN Comment Result Comment: NEGATIVE FOR INTRAEPITHELIAL LESION AND MALIGNANCY. THIS SPECIMEN WAS RESCREENED PART OF OUR EMBOSSING MACHINE TENDER PROGRAM. LAB L7400.0900 . Normal ADEQ Comment Result Comment: Satisfactory for evaluation. No endocervical component is identified. An endocervical component is not commonly seen in the patient. LAB L7400.1400 . Normal PERFORM Comment Result Comment: Leesa Honeycutt, Transitional Nurse ([facility]) LAB L7400.1500 . Normal QC Comment REV Result Comment: Radha Sen, Transitional Nurse ([facility]) LAB L7400.2575 . Normal TEST [...] no HPV testing was performed. Performed at: [facility] [address] [id number] Consumer Affairs Specialist: Melissa Koehler MD, Phone: [phone] Performed By: #### L7400.0350 #### [facility] (refer to report for specific site) refer to report for address and phone number ALLERGIES ALLERGIES DATE TYPE / CODE NAME / CODE REACTION SEVERITY SOURCE 06/04/2018 Drug shellfish Vomiting Unknown [place] [facility] Allergy/416 derived/[id number] [facility] 728571(SNOM 54(RXNORM) Repository ED CT) ENCOUNTERS ENCOUNTERS ADMIT/DISCHARGE ACCOUNT ADMITTING ENCOUNTER LOCATION SOURCE NUMBER CLASS 07/06/2018 [id number] Ambulatory [place] 2 [facility] ing:LABSPEC Repository 06/04/2018/ [id number] Ambulatory [place] 8 3 [facility] ing:WPOUTRoom Repository : OBT06 05/24/2018 [id number] Ambulatory [place] 6 [facility] ing:WOBLAB Repository 05/09/2018 [id number] Ambulatory [place] 3 [facility] ing:LAB Repository 05/03/2018 [id number] Ambulatory [place] 7 [facility] ing:WOBLAB Repository 01/28/2018 [id number] Ambulatory [place] 3 [facility] Hospital ing:PSN Repository 01/28/2018 [id number] Ambulatory BMSBuilding:W [place] 3 [facility] Hospital Repository 01/10/2018 [id number] Ambulatory [place] 5 [facility] ing:WOBLAB Repository 12/21/2017 [id number] Ambulatory [place] 3 [facility] Hospital ing:LABSPEC Repository PAYERS PAYERS ENCOUNTER GUARANTOR PAYER SUBSCRIBER SOURCE 07/06/2018 LAITH A Primary HUMBLE WYNNEDOB: [place] [id number] Insurance:[facility] [id number] [id number] Repository [place] Date:4343-17-35NY [address] [address]Apv: [phone]) [id number], [place] [phone] () [address]AY: 07/06/2018 Secondary NOT GIVENUNK [place] Insurance:SELF PAY [facility] Hospital Number: Effective Repository Date:2018-07-06 06/04/2018 LAITH A Primary HUMBLE WYNNEDOB: [place] [id number] Insurance:[facility] [id number] Hospital Number: [facility] [id number] Repository [place] Date:7697-01-05SN [address] [address]Hoc: [phone]) [phone], [place] [phone] () [address]NJ: 06/04/2018 Secondary NOT GIVENUNK [place] Insurance:SELF PAY [facility] Hospital Number: Effective Repository Date:2018-06-04 05/24/2018 LAITH A Primary HUMBLE WYNNEDOB: [place] [id number] [facility] [id number] Hospital Number: [facility] [id number] Repository [place] Date:3584-60-97OP [address] [address]Fhq: (149) [phone], [place] [phone] () [address]JC: 05/24/2018 Secondary NOT GIVENUNK [place] Insurance:SELF PAY [facility] Hospital Number: Effective Repository Date:2018-05-24 05/09/2018 LAITH A Primary HUMBLE WYNNEDOB: [place] [id number] Insurance:GPATPA [id number] Hospital Number: [facility] [id number] Repository [place] Date:2767-46-50ZL [address] [address]Ydv: [phone]) [phone], [place] [phone] () [address]CS: 05/09/2018 Secondary NOT GIVENUNK [place] Insurance:SELF PAY [facility] Hospital Number: Effective Repository Date:2018-05-04 05/03/2018 LAITH A Primary HUMBLE WYNNEDOB: [place] [id number] Insurance:GPATPA [id number] Hospital Number: [facility] [id number] Repository [place] Date:9573-46-03AE [address] [address]Pst: [phone], [place] [phone] () [address]NE: 05/03/2018 Secondary NOT GIVENUNK [place] Insurance:SELF PAY [facility] Hospital Number: Effective Repository Date:2018-05-03 01/28/2018 LAITH A Primary HUMBLE WYNNEDOB: [place] [id number] Insurance:GPATPA [id number] [facility] Number: Hospital DRUNIT [id number] Repository [place] Date:9845-98-19EC [address] [address]Dcg: [phone]) [phone], [place] [phone] () [address]RU: 01/28/2018 Secondary NOT GIVENUNK [place] Insurance:SELF PAY [facility] Hospital Number: Effective Repository Date:2018-01-28 01/28/2018 LAITH A Primary HUMBLE WYNNEDOB: [place] [id number] Insurance:GPATPA [id number] Community [employer] CERCOPolicy Number: [facility] [id number] Repository [place] Date:3807-30-48ZM [address] [address]Pbz: ([phone]) [phone], [place] [phone] (HP) [address]GP: 01/28/2018 Secondary NOT GIVENUNK [place] Insurance:SELF PAY [facility] Hospital Number: Effective Repository Date:2018-01-28 01/10/2018 LAITH [id number] Primary HUMBLE SOLOMON [place] [employer] Insurance:[facility] DRUNIT CERCOPolic Number: [place], [place] [id number] Repository [address]Xpp: ([phone]) Date:7645-50-14TH [phone] (HP) [id number], [place] [address]VF: 01/10/2018 Secondary NOT GIVENUNK [place] Insurance:SELF PAY [facility] Hospital Number: Effective Repository Date:2018-01-10 12/21/2017 LAITH [id number] Primary HUMBLEBO CARBAJAL [place] MEADOWCREELLI Insurance:GPAA [facility] DRUNIT [facility] Number: [place], [place] [id number] Repository [address]Bab: ([phone]) Date:9901-44-18CA [phone] (HP) [phone], [place] [address]LD: 12/21/2017 Secondary NOT GIVENUNK [place] Insurance:SELF PAY [facility] Hospital Number: Effective Repository Date:2017-12-21
== END ==
PROVIDERS: Visit Provider Obstetrics & Gynecology
DX: Z36.85 Encounter for antenatal screening for Streptococcus B (principal)
CPT/HCPCS: 87081

== ENCOUNTER 2018-07-23 16:30 | Outpatient (CLI) | payer OTHER, SELFPAY ==
[2018-07-23 17:37] LABS: Bacteria 0 SEEN /hpf (None Seen); Mucous, Urine 0 SEEN /hpf (<or=2+); Red Blood Cells-Urine 0 SEEN /hpf (0-5); Squamous Epithelial Cells - UA 0 SEEN /hpf (5-10)
[2018-07-23 17:38] LABS: Color, Urine Yellow (Yellow); Glucose, Dipstick Normal (Normal); Ketone-Dipstick Negative (Negative); Leukocyte Esterase-Dipstick 100 /ul (Negative); Nitrite-Dipstick Negative (Negative); Occult Blood-Urine Negative /ul (Negative); Protein-Dipstick Negative (Negative); Specific Gravity, Urine 1.005 (1.002-1.030); Urine Bilirubin Dipstick Negative (Negative); Urine Clarity Clear (Clear); Urine Urobilinogen Normal (Normal)
[2018-07-23 17:49] VITALS: BMI 31.3
[2018-07-23 17:50] LABS: White Blood Cells 0-5 SEEN /hpf (0-5)
--- NOTE | 2018-07-24 10:45 | OB.TRI.HP_ITS ---
History of Present Illness Was patient seen by the physician?: No Reason For Visit: RULE OUT LABOR Date of Service: 07/23/18 Final MADHAV: 07/30/18 Final MADHAV Source: US <20 weeks Gestational age: 39 Weeks and 1 Days History of Present Illness: 39+ week intrauterine presents to labor and delivery to rule out labor. She took castor oil at home earlier in the day and feels ill. Having f ew contractions. Allergies shellfish derived Adverse Reaction (Verified 07/23/18 17:51) Vomiting Laboratory Studies: Laboratory Tests 07/23/18 Range/Units 17:20 Urine Color Yellow (Yellow) Urine Clarity Clear (Clear) Urine pH 7.0 (5.0 - 8.0) Ur Specific [place] 1.005 (1.002-1.030) Urine Protein Negative (Negative) mg/dl Urine Glucose (UA) Normal (Normal) mg/dl Urine Ketones Negative (Negative) mg/dl Urine Occult Blood Negative (Negative) /ul Urine Nitrite Negative (Negative) Urine Bilirubin Negative (Negative) mg/dL Urine Urobilinogen Normal (Normal) mg/dl Ur Leukocyte Esterase 100 H (Negative) /ul Urine RBC 0 SEEN (0-5) /hpf Urine WBC 0-5 SEEN (0-5) /hpf Ur Squamous Epith Cells 0 SEEN (5-10) /hpf Urine Bacteria 0 SEEN (None Seen) /hpf Urine Mucus 0 SEEN (<or=2+) /hpf NST - FHR Rate Baby A NST Reactive:: Yes FHR Category:: Category I Uterine Activity:: Occasional mild contraction. Impression/Plan 39+ week intrauterine with false labor. Reactive nonstress test. No change in cervix after monitoring. Will release to home with routine instructio ns and follow-up in the office routine.
== END 2018-07-23 18:35 | disposition home or self-care (01) ==
LOC: WPOUT 16:44 → WP 16:45
PROVIDERS: Visit Provider Obstetrics & Gynecology
DX: O47.1 False labor at or after 37 completed weeks of gestation (principal); Z3A.39 39 weeks gestation of pregnancy
CPT/HCPCS: 59025; 59050; 81001; 87086; 99218; G0378

== ENCOUNTER 2018-07-27 04:55 | Inpatient (IN) | payer OTHER, SELFPAY ==
[2018-07-27] VITALS (22 sets, daily range): BP systolic 92–107; BP diastolic 47–74; PULSE 79–110; RESP 14–18; TEMP 36.2–36.6; O2SAT 95–100; BMI 31.6
[2018-07-27] MEDS: Lactated Ringers 1,000 ML 999 ML IV (05:18)
[2018-07-27 05:41] LABS: Absolute Lymphocyte Count 1.27 X10^3/ul (0.83-4.51); Absolute Neutrophil Count 6.5 X10^3/uL (2.0-7.7); Basophil# 0.02 X10^3/uL; Basophil% 0.2 % (0-1); Eosinophil# 0.09 X10^3/uL; Hematocrit 34.5 % (37-47); Hemoglobin 11.5 g/dl (12.0-15.0); Lymphocyte # 1.27 X10^3/ul (4.0); Lymphocyte % 14.2 % (19-41); Mean Corp Hgb Conc 33.3 g/gl (32-36); Mean Corpuscular Hgb 33.3 pg (27.0-32.0); Mean Platelet Vol. 10.7 fl (6.2-12.0); Monocyte# 0.95 X10^3/uL; Monocyte% 10.6 % (0-10); Neutrophil # 6.53 X10^3/uL (2.7-7.7); Neutrophil % 72.8 % (47-70); Platelet Count 186 K/mm3 (150-450); RBC Distribution Width CV 13.7 % (11.6-14.6); RBC Distribution Width SD 49.8 fl (35.1-43.9); Red Blood Count 3.45 M/mm3 (4.2-5.4)
[2018-07-27 05:43] LABS: POSITIVE COUNT NO; POSITIVE DIFFERENTIAL NO; POSITIVE MORPHOLOGY NO
[2018-07-27 05:47] LABS: International Normalized Ratio 0.9; Prothrombin Time (Protime)PT. 12.2 SECONDS (11.7-14.9)
[2018-07-27 05:48] LABS: Partial Thromboplast Time 26.9 Seconds (24.1-36.2)
[2018-07-27] MEDS: Lactated Ringers 1,000 ML 150 ML IV (06:44)
[2018-07-27] MEDS: Sodium Citrate/Citric Acid 30 ML UDC PO (07:13)
[2018-07-27] MEDS: Cefazolin 2 GM in 0.9% Normal Saline 100 ML IV (07:35)
[2018-07-27] MEDS: Ondansetron 4 MG/2 ML Vial IV (07:35)
[2018-07-27] MEDS: Oxytocin 30 units/NS 500 ml 30 UNITS/500 ML IV.SOLN 167 UNITS IV (07:45)
[2018-07-27] MEDS: Ketorolac 30 MG/ML Syringe IV ×3 (08:02→20:09)
--- NOTE | 2018-07-27 08:36 | OP.PCM_ITS ---
Operative Report Date of Procedure: 07/27/18 PROCEDURE: Primary C section. Preoperative diagnosis: 39 4/7 wk EGA Footling breech presentation / unstable lie Postop diagnosis: 39 4/7 wk EGA Footling breech presentation / unstable lie Anesthesia: Spinal, Darío Espinosa CRNA Surgeon: Marisol Vargas MD Lineman Service Or Work Dispatcher: NAZARIO Michele EBL 800 cc Complications: none Drains: Tyson draining clear yellow appearing urine Fluids: replacement LR Findings: At amniotomy, clear fluid was noted. Marte viable male. Apgars 9/9, Baby weight: 7# 6 oz There was a normal appearing uterus, fallopian tubes and ovaries bilaterally. PATH: Routine cord blood for typing collected. Routine cord gases were sent. Narrative account: After the risks, benefits and alternatives of the procedure were reviewed with the patient, informed consent was obtained. The patient was taken to the Operating room with an IV running, and placed in a seated position on the operating table for placement of the spinal. Once the spinal had been administered, she was briefly frog-legged for Tyson catheter placement, and then repositioned to dorsal supine position with leftward displacement of the uterus, and prepped and draped in the usual sterile fashion. Once the spinal was deemed adequate, a Pfannenstiel skin incision was created using the knife. The incision was carried down to the rectus fascia using the knife. The fascia was nicked in the midline. The fascial incision was extended bilaterally using curved Dale scissors. The superior aspect of the fascial incision was grasped with Yanique clamps and tented up and the underlying rectus abdominal muscles were dissected free. In a similar manner, the inferior aspect of the facial incision was grasped with Yanique clamps tented up and the underlying rectus abdominal muscles were dissected free. The rectus abdominis muscles were in the midline by blunt dissection and the peritoneum was identified and entered by blunt dissection high in the incision. The peritoneum was stretched laterally and a bladder blade was inserted. A bladder flap was created along the lower uterine segment with Metzenbaum scissors . The uterine incision was then created using Metzenbaum scissors. The operators fingertips were used to extend the uterine incision by blunt dissection in a caudad- cephalad orientation . Clear fluid was noted at amniotomy. The was delivered vertex, atraumatically through the incision. The OP and nares were bulb suctioned on the abdomen. The shoulders delivered easily . The cord clamped x two and cut. And the infant was handed off to the nurse awaiting delivery after briefly showing him to his parents. The baby had a spontaneous, vigorous cry. The placenta was then delivered. The uterus was exteriorized and cleared of clots and debris . The uterine incision was repaired with 1 Vicryl in a running locked fashion. A second imbricating layer was then placed, using 1 Monocryl in running nonlocked fashion. Bovie cautery was used to treat any bleeding areas . A figure of 8 stitch of 1 Vicryl was placed at the R uterine angle. Excellent hemostasis was noted. At this point the uterus was returned to the abdominal cavity. The gutters were cleared of clots and debris and the incision at the uterus was inspected. The peritoneal edges were reapproximated in the midline with a series of interrupted vertical mattress stitches of 1 Vicryl. Excellent hemostasis was noted at the subfascial space The fascia was closed in a running nonlocked fashion with a Stratofix. The Subcutaneous fatty tissue was Bovie cauterized as needed for hemostasis. This layer was then re approximated in a single layer closure of running 3-0 Vicryl to eliminate space. The skin edges were closed in a Subcuticular stitch of 4-0 Monocryl. The incision was cleansed. Cavilon, Steristrips, and Mepilex dressing were applied to the skin . The patient was then transferred to the recovery room bed in stable condition after tolerating the procedure well. Sponge, lap, needle and instrument counts correct times two. Medications given preop and intraoperatively included: Ancef 2 gm IV was given transcription manager to the operating room. The patient also received Pitocin given IV after cord clamp, and Toradol 30 mg IV times one. For a complete listing of medications given preop and intraoperatively, please see the anesthesia record.
[2018-07-27] MEDS: Sertraline 50 MG Tablet PO (10:30)
[2018-07-27] MEDS: Prenatal Vits Tablet 1 TABLET PO (12:26)
[2018-07-27] MEDS: Lactated Ringers 1,000 ML 100 ML IV ×2 (13:17→23:24)
[2018-07-27] MEDS: Levothyroxine 50 MCG Tablet PO (14:14)
[2018-07-28] VITALS (7 sets, daily range): BP systolic 99–111; BP diastolic 52–67; PULSE 78–100; RESP 16–18; TEMP 36.2–36.8; O2SAT 95–97
[2018-07-28] MEDS: Ketorolac 30 MG/ML Syringe IV ×4 (01:46→20:07)
[2018-07-28] MEDS: Levothyroxine 50 MCG Tablet PO (05:43)
[2018-07-28 06:24] LABS: Hematocrit 30.6 % (37-47); Hemoglobin 9.9 g/dl (12.0-15.0); Mean Corp Hgb Conc 32.4 g/gl (32-36); Mean Corpuscular Hgb 33.4 pg (27.0-32.0); Mean Corpuscular Volume 103.4 fL (81-99); Mean Platelet Vol. 10.9 fl (6.2-12.0); Platelet Count 162 K/mm3 (150-450); RBC Distribution Width CV 13.3 % (11.6-14.6); RBC Distribution Width SD 48.2 fl (35.1-43.9); Red Blood Count 2.96 M/mm3 (4.2-5.4); White Blood Count 12.9 K/mm3 (4.4-11.0)
[2018-07-28 06:28] LABS: Scan Indicated on CBC? Y/N NO
[2018-07-28] MEDS: Prenatal Vits Tablet 1 TABLET PO (08:03)
[2018-07-28] MEDS: Sertraline 50 MG Tablet PO (08:03)
[2018-07-28] MEDS: Ferrous Sulfate 325 MG Tablet PO (08:03)
--- NOTE | 2018-07-28 08:19 | PCM.PN.OB ---
Subjective: PPD#1 Vaginal delivery Doing well. well. Minimal pain, minimal bleeding. Considering going home today. 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 then will be off several weeks. 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 - Physical Exam General: Alert, Oriented x3, Cooperative, No apparent distress HEENT: Atraumatic Neck: Supple Abdomen: Soft - Fundus firm NT approx 3 cm inferior to umbilicus Extremities: No clubbing, No cyanosis, No edema Neurological: Cranial nerves II-XII grossly intact Psych/Mental Status: Normal Affect Vital Signs Temp Pulse Resp BP Pulse Ox 97.1 F L 78 16 106/52 L 96 07/28/18 03:54 07/28/18 05:44 07/28/18 05:44 07/28/18 03:54 07/28/18 05:44 Oxygen Delivery Method Room Air Weight: 68.765 kg Body Mass Index (BMI) 31.6 Intake and Output for Last 24 Hours 07/26/18 07/27/18 07/28/18 23:59 23:59 23:59 Intake Total 3700 / 3700 2050 / 2050 Output Total 2850 / 2850 2600 / 2600 Balance 850 / 850 -550 / -550 Laboratory Tests Past 24 Hrs 07/28/18 05:50 WBC 12.9 H RBC 2.96 L Hgb 9.9 L Hct 30.6 L MCV 103.4 H MCH 33.4 H MCHC 32.4 RDW 13.3 RDW Differential 48.2 H Plt Count 162 MPV 10.9 Medical Necessity - Tobacco Use Smoking Status: Never smoker Assessment/Plan PPD#1 Stable pp. Possible dischg later today as pt requesting, depending on whether infant is discharged. 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 Feels she is ready to go home
--- NOTE | 2018-07-28 08:23 | PCM.WORK.EX ---
Work/School Excuse Work/School Excuse for:: Patient From: 07/28/18 through: 07/30/18 - OK to return to [employer] after this. Restrictions: Light Duty
--- NOTE | 2018-07-28 08:26 | PCM.PN.OB ---
Subjective: POD#1 Primary C Section. Footling breech Doing well. Nursing. States just now becoming more painful. no concerns voiced. Objective: Sitting up at bedside, legs dangling. Breast feeding baby. - Physical Exam General: Alert, Oriented x3, Cooperative, No apparent distress HEENT: Atraumatic Neck: Supple Skin: Incision - Mepilex dressing CDI with 3 spots of shadow drainage each less than 5 mm. Neurological: Cranial nerves II-XII grossly intact Psych/Mental Status: Normal Affect Vital Signs Temp Pulse Resp BP Pulse Ox 97.1 F L 78 16 106/52 L 96 07/28/18 03:54 07/28/18 05:44 07/28/18 05:44 07/28/18 03:54 07/28/18 05:44 Oxygen Delivery Method Room Air Weight: 68.765 kg Body Mass Index (BMI) 31.6 Intake and Output for Last 24 Hours 07/26/18 07/27/18 07/28/18 23:59 23:59 23:59 Intake Total 3700 / 3700 2050 / 2050 Output Total 2850 / 2850 2600 / 2600 Balance 850 / 850 -550 / -550 Laboratory Tests Past 24 Hrs 07/28/18 05:50 WBC 12.9 H RBC 2.96 L Hgb 9.9 L Hct 30.6 L MCV 103.4 H MCH 33.4 H MCHC 32.4 RDW 13.3 RDW Differential 48.2 H Plt Count 162 MPV 10.9 Medical Necessity - Tobacco Use Smoking Status: Never smoker Assessment/Plan PPD#2 Stable postop. Tyson removed for voiding trial IV to S/L. Inc diet and activity as tolerated. Continue Toradol today. Begin po meds. continue routine care.
[2018-07-28] MEDS: 0.9% Saline Lock 10 ML Syringe IV ×2 (13:51→20:07)
[2018-07-29 02:10] VITALS: BP 111/77; PULSE 78; RESP 16; TEMP 36.6
[2018-07-29] MEDS: Ketorolac 30 MG/ML Syringe IV ×2 (02:11→07:56)
[2018-07-29] MEDS: 0.9% Saline Lock 10 ML Syringe IV ×2 (02:11→07:55)
--- NOTE | 2018-07-29 03:55 | NURSING ---
3 small circular area of drainage circled on mepilex to monitor for change. Will continue to assess and monitor
[2018-07-29] MEDS: Levothyroxine 50 MCG Tablet PO (05:52)
--- NOTE | 2018-07-29 07:11 | PCM.PN.OB ---
Subjective: POD#2 Primary C/S Doing well. A little more sore today between meds given. Breast feeding. milk not in yet. +flatus. Baby doing well. Watching bili levels Uncertain if she wants to go home today by POD#3-4. Objective: Holding sleeping baby. - Physical Exam General: Alert, Oriented x3, Cooperative, No apparent distress HEENT: Atraumatic Neck: Supple Abdomen: Soft - Fundus firm minimally tender c/w postop status. at 1 cm inferior to umbilicus Skin: Incision - Mepilex dressing CDI. with scant less then 5 mm spots of old drainage x 3 noted. Neurological: Cranial nerves II-XII grossly intact Psych/Mental Status: Normal Affect Vital Signs Temp Pulse Resp BP Pulse Ox 97.8 F 78 16 111/77 97 07/29/18 02:10 07/29/18 02:10 07/29/18 02:10 07/29/18 02:10 07/28/18 16:20 Oxygen Delivery Method Room Air Weight: 68.765 kg Body Mass Index (BMI) 31.6 Intake and Output for Last 24 Hours 07/27/07/28/18 07/29/18 23:59 23:59 23:59 Intake Total 3700 / 3700 2850 / 2850 Output Total 2850 / 2850 3525 / 3525 Balance 850 / 850 -675 / -675 Medical Necessity - Tobacco Use Smoking Status: Never smoker Assessment/Plan PPD#2 Stable postop. Voiding well. D/C S/L today. continue routine care.
--- NOTE | 2018-07-29 07:16 | PCM.DCCSEC ---
Discharge Diet: No Restrictions Discharge Activity: May not drive while taking narcotic pain medications., May Shower, May Take a Tub Bath May resume sexual activity in: 4-6 weeks Lifting Restrictions: 20 pounds Additional Activity Instructions:: Nothing in the vagina for 4-6 weeks. You may return to work/school in 6 weeks. Change Dressing in (Days):: 7 Remove Dressing in (days):: 7 Cleanse incision/area with: Soap & Water, Keep Dressing Clean & Dry Additional Instructions: If you experience any of the following, contact your healthcare provider. Bleeding that soaks a pad every hour for 2 hours Fever 100.4 or higher Unrelieved incision or abdominal pain Swelling, redness, discharge or bleeding from your incision Problems urinating (including inability to urinate or burning while urinating). Visual changes Severe headache Flu-like symptoms Pain or redness in one of both of your breasts Pain, warmth, tenderness or swelling in your legs, especially the calf area Frequent nausea and vomiting Symptoms of depression or anxiety If you experience any of the following, call 911 or go to the nearest Emergency Room. Chest pain Problems breathing Seizure activity Partial or complete paralysis of a body part, slurred speech, weakness or drooping of the face, or a sudden inability to walk or hold your balance Allergies/Adverse Reactions: Allergies shellfish derived Adverse Reaction (Verified 07/23/18 17:51) Vomiting Medications to take at Discharge Levothyroxine [Synthroid] 50 mcg PO DAILY 06/04/18 Pnv No.121/Iron/Folic Acid [ Multivitamin Tablet] 1 each PO DAILY 06/04/18 Sertraline HCl [Zoloft] 50 mg PO DAILY 06/04/18 Acetaminophen [Tylenol] 1,000 mg PO Q8H PRN tablet 07/29/18 Ibuprofen [Motrin] 800 mg PO Q6H PRN PRN #30 tablet 07/29/18 Oxycodone [Oxyir] 5 - 10 mg PO Q6H PRN PRN 7 Days #20 tablet 07/29/18 Senna/Docusate Sodium [Senokot-S] 1 tab PO BID PRN #30 tablet 07/29/18 The following prescriptions were given: Ibuprofen [Motrin] 800 mg PO Q6H PRN PRN #30 tablet PRN Reason: Mild-Mod Pain (1-5/10) Oxycodone [Oxyir] 5 - 10 mg PO Q6H PRN PRN 7 Days #20 tablet PRN Reason: Mod-Severe Pain (-03/30) Senna/Docusate Sodium [Senokot-S] 1 tab PO BID PRN #30 tablet PRN Reason: Constipation Follow-Up: Call to make an appointment with your doctor for an incision check in 1-2 weeks. You will also need a 6 week post- follow up appointment. Test results from this visit will be discussed in further detail at your follow-up appointment, if applicable. Please Follow Up With: Marisol Vagras MD - [phone] When: Call to make an appointment for an incision check in 2 weeks. Proposed Discharge Date: 07/30/18
--- NOTE | 2018-07-29 07:21 | DCINST_ITS ---
Discharge Diet: No Restrictions Discharge Activity: May not drive while taking narcotic pain medications., May Shower, May Take a Tub Bath May resume sexual activity in: 4-6 weeks Lifting Restrictions: 20 pounds Additional Activity Instructions:: Nothing in the vagina for 4-6 weeks. You may return to work/school in 6 weeks. Change Dressing in (Days):: 7 Remove Dressing in (days):: 7 Cleanse incision/area with: Soap & Water, Keep Dressing Clean & Dry Additional Instructions: If you experience any of the following, contact your healthcare provider. * Bleeding that soaks a pad every hour for 2 hours * Fever 100.4 or higher * Unrelieved incision or abdominal pain * Swelling, redness, discharge or bleeding from your incision * Problems urinating (including inability to urinate or burning while urinating). * Visual changes * Severe headache * Flu-like symptoms * Pain or redness in one of both of your breasts * Pain, warmth, tenderness or swelling in your legs, especially the calf area * Frequent nausea and vomiting * Symptoms of depression or anxiety If you experience any of the following, call 911 or go to the nearest Emergency Room. * Chest pain * Problems breathing * Seizure activity * Partial or complete paralysis of a body part, slurred speech, weakness or drooping of the face, or a sudden inability to walk or hold your balance Allergies/Adverse Reactions: Allergies shellfish derived Adverse Reaction (Verified 07/23/18 17:51) Vomiting Medications to take at Discharge Levothyroxine [Synthroid] 50 mcg PO DAILY 06/04/18 Pnv No.121/Iron/Folic Acid [ Multivitamin Tablet] 1 each PO DAILY 06/04/18 Sertraline HCl [Zoloft] 50 mg PO DAILY 06/04/18 Acetaminophen [Tylenol] 1,000 mg PO Q8H PRN tablet 07/29/18 Ibuprofen [Motrin] 800 mg PO Q6H PRN PRN #30 tablet 07/29/18 Oxycodone [Oxyir] 5 - 10 mg PO Q6H PRN PRN 7 Days #20 tablet 07/29/18 Senna/Docusate Sodium [Senokot-S] 1 tab PO BID PRN #30 tablet 07/29/18 The following prescriptions were given: Ibuprofen [Motrin] 800 mg PO Q6H PRN PRN #30 tablet PRN Reason: Mild-Mod Pain (1-10/28) Oxycodone [Oxyir] 5 - 10 mg PO Q6H PRN PRN 7 Days #20 tablet PRN Reason: Mod-Severe Pain (4-03/30) Senna/Docusate Sodium [Senokot-S] 1 tab PO BID PRN #30 tablet PRN Reason: Constipation Follow-Up: Call to make an appointment with your doctor for an incision check in 1-2 weeks. You will also need a 6 week post- follow up appointment. Test results from this visit will be discussed in further detail at your follow- up appointment, if applicable. Please Follow Up With: Marisol Vargas MD - [phone] When: Call to make an appointment for an incision check in 2 weeks. Proposed Discharge Date: 07/30/18
[2018-07-29] MEDS: Ferrous Sulfate 325 MG Tablet PO (07:56)
[2018-07-29] MEDS: Prenatal Vits Tablet 1 TABLET PO (07:56)
[2018-07-29] MEDS: Sertraline 50 MG Tablet PO (07:56)
[2018-07-29 08:46] VITALS: BP 105/69; PULSE 83; RESP 18; TEMP 36.5
[2018-07-29] MEDS: oxyCODONE 5 MG Tablet PO (11:10)
[2018-07-29] MEDS: Senna/Docusate Sodium 1 Tablet PO (11:11)
[2018-07-29 14:00] VITALS: BP 111/72; PULSE 99; RESP 18; TEMP 36.6
[2018-07-29] MEDS: Ibuprofen 400 MG Tablet 800 MG PO (14:24)
--- NOTE | 2018-07-29 14:56 | PCM.DC.SUM ---
Discharge Date and Diagnosis Date of Admission: 07/27/18 Date of Discharge: 07/29/18 Hospital Course and Treatment Operations: - - Primary C section Summary of Care Provided: The patient is a 22 year old female presents for primary C/S due to unstable lie, footling breech presentation. C/S delivery uncomplicated. Marte viable male Ap 9/9 Postop course uneventful and chose to go home on POD#2 Home RTO in 2 wk for postop appointment. - Physical Exam Vital Signs Temp Pulse Resp BP Pulse Ox 97.9 F 99 18 111/72 97 07/29/18 14:00 07/29/18 14:00 07/29/18 14:00 07/29/18 14:00 07/28/18 16:20 Oxygen Delivery Method Room Air Weight: 68.765 kg Body Mass Index (BMI) 31.6 Intake and Output for Last 24 Hours 07/27/18 07/28/18 07/29/18 23:59 23:59 23:59 Intake Total 3700 / 3700 2850 / 2850 Output Total 2850 / 2850 3525 / 3525 Balance 850 / 850 -675 / -675 Discharge Diet: No Restrictions Discharge Activity: May not drive while taking narcotic pain medications., May Shower, May Take a Tub Bath May resume sexual activity in: 4-6 weeks Additional Activity Instructions:: Nothing in the vagina for 4-6 weeks. You may return to work/school in 6 weeks. Change Dressing in (Days):: 7 Remove Dressing in (days):: 7 Cleanse incision/area with: Soap & Water, Keep Dressing Clean & Dry Home Medications: Medications to take at Discharge Levothyroxine [Synthroid] 50 mcg PO DAILY 06/04/18 Pnv No.121/Iron/Folic Acid [ Multivitamin Tablet] 1 each PO DAILY 06/04/18 Sertraline HCl [Zoloft] 50 mg PO DAILY 06/04/18 Acetaminophen [Tylenol] 1,000 mg PO Q8H PRN tablet 07/29/18 Ibuprofen [Motrin] 800 mg PO Q6H PRN PRN #30 tablet 07/29/18 Oxycodone [Oxyir] 5 - 10 mg PO Q6H PRN PRN 7 Days #20 tablet 07/29/18 Senna/Docusate Sodium [Senokot-S] 1 tab PO BID PRN #30 tablet 07/29/18 Following Prescrptions Were Given to Patient: Ibuprofen [Motrin] 800 mg PO Q6H PRN PRN #30 tablet PRN Reason: Mild-Mod Pain (1-510) Oxycodone [Oxyir] 5 - 10 mg PO Q6H PRN PRN 7 Days #20 tablet PRN Reason: Mod-Severe Pain (4-1010) Senna/Docusate Sodium [Senokot-S] 1 tab PO BID PRN #30 tablet PRN Reason: Constipation Please Follow Up With: Marisol Vargas MD - [phone] When: Call to make an appointment for an incision check in 2 weeks. Medical Necessity - Tobacco Use Smoking Status: Never smoker Meaningful Use Info Meaningful Use Diagnoses (Choose all that apply): None applicable
--- NOTE | 2018-08-04 14:16 | NURSING ---
Mother states doing well on follow up phone call. Mother still breast feeding and baby weight good. States all the nurses were great and had really good experience.
== END 2018-07-29 17:30 | disposition home or self-care (01) | DRG 788 ==
PROVIDERS: Admitting Provider Obstetrics & Gynecology; Referring Provider Obstetrics & Gynecology; Visit Provider Obstetrics & Gynecology
PROC: 10D00Z1 Extraction of Products of Conception, Low, Open Approach (ICD-10-PCS; CPT 59514; principal; 2018-07-27 07:15)
DX: O32.8XX0 Maternal care for other malpresentation of fetus, not applicable or unspecified (principal); Z3A.39 39 weeks gestation of pregnancy; Z37.0 Single live birth; O99.02 Anemia complicating childbirth; D64.9 Anemia, unspecified
CPT/HCPCS: 85025; 85027; 85610; 85730; 86850; 86900; 99218; J7120; A4216; G0378; J2405; J3490

== ENCOUNTER → 2019-02-06 | Outpatient (CLI) | payer OTHER, SELFPAY ==
[2018-07-27 05:11] VITALS: BMI 31.6
[2019-02-06 13:25] LABS: Anion Gap 4 (5-15); BUN 10 mg/dL (7-18); BUN/Creat Ratio 14.8 RATIO (10-20); Chloride 108 mmol/L (98-107); Creatinine, Serum 0.68 mg/dL (0.55-1.02); EST Glomerular Filtration Rate 114 mL/min (>60); Est Glom Filt Rate - Afr Amer 138 mL/min (>60); Glucose 88 mg/dL (74-106); Potassium 4.2 mmol/L (3.5-5.1); Sodium Level 142 mmol/L (136-145)
== END | disposition home or self-care (01) ==
LOC: LAB 12:22
PROVIDERS: Family Provider Counselor Mental Health; PCP Counselor Mental Health; Referring Provider Counselor Mental Health; Visit Provider Counselor Mental Health
DX: E03.9 Hypothyroidism, unspecified (principal)
CPT/HCPCS: 36415; 80048; 84443

== ENCOUNTER → 2020-01-11 16:47 | Outpatient (CLI) | payer OTHER, SELFPAY ==
[2018-07-27 05:11] VITALS: BMI 31.6
[2020-01-11 17:09] LABS: Color, Urine Yellow (Yellow); Glucose, Dipstick Normal (Normal); Ketone-Dipstick Negative (Negative); Leukocyte Esterase-Dipstick 25 /ul (Negative); Nitrite-Dipstick Negative (Negative); Occult Blood-Urine 25 /ul (Negative); Protein-Dipstick Negative (Negative); Urine Bilirubin Dipstick Negative (Negative); Urine Clarity Sl. Cloudy (Clear); Urine Urobilinogen Normal (Normal); Urine pH 6.5 (5.0 - 8.0)
[2020-01-11 17:10] LABS: Absolute Lymphocyte Count 1.54 X10^3/uL (0.83-4.51); Absolute Neutrophil Count 7.4 X10^3/uL (2.0-7.7); Basophil# 0.04 X10^3/uL; Basophil% 0.4 % (0-1); Eosinophil# 0.02 X10^3/uL; Eosinophils% 0.2 % (0-5); Hematocrit 38.2 % (37-47); Lymphocyte # 1.54 X10^3/ul (4.0); Lymphocyte % 15.7 % (19-41); Mean Corpuscular Volume 94.1 fL (81-99); Mean Platelet Vol. 10.3 fl (6.2-12.0); Monocyte# 0.79 X10^3/uL; NRBC Flagged by Analyzer 0 % (0-5); Neutrophil % 75.3 % (47-70); Platelet Count 310 K/mm3 (150-450); RBC Distribution Width CV 13.1 % (11.6-14.6); RBC Distribution Width SD 44.9 fl (35.1-43.9); Red Blood Count 4.06 M/mm3 (4.2-5.4); White Blood Count 9.8 K/mm3 (4.4-11.0)
[2020-01-11 17:24] LABS: Amphetamine Urine VISTA NEGATIVE (<1000 ng/mL); Barbiturate Urine VISTA NEGATIVE (< 200 ng/mL); Benzodiazepine Urine VISTA NEGATIVE (< 200 ng/mL); Cocaine Urine VISTA NEGATIVE (< 300 ng/mL); Ecstacy Urine VISTA NEGATIVE (< 500 ng/mL); Methadone Urine VISTA NEGATIVE (< 300 ng/mL); PCP Urine VISTA NEGATIVE (< 25 ng/mL); THC Urine VISTA NEGATIVE (< 50 ng/mL); Vista UDS pH Range 6
[2020-01-11 18:10] LABS: Free T3 2.4 pg/mL (2.18-3.98); T4 Free Direct 1.06 ng/dL (0.76-1.46); T4 Total, Thyroxin 11.5 ug/dL (4.8-13.9); Thyroid Stim Hormone (TSH) 2.34 uIU/mL (0.358-3.74)
[2020-01-11 19:47] LABS: Chlamydia Trachomatis by PCR Negative (Negative); Neisserai gonorrhoeae by PCR Negative (Negative); Probe Check PASS; Sample Adequacy Control PASS; Specimen Processing Control PASS
[2020-01-13 09:31] LABS: HIV - WCH Non-Reactive (Nonreactive); Hepatitis B Surface Antigen Non-Reactive (Nonreactive); Hepatitis C Antibody Non-Reactive (Nonreactive)
[2020-01-18 02:01] LABS: Prenatal RPR NONREACTIVE (NONREACTIVE)
== END ==
PROVIDERS: PCP Counselor Mental Health; Visit Provider Obstetrics & Gynecology
DX: Z34.81 Encounter for supervision of other normal pregnancy, first trimester (principal); E03.9 Hypothyroidism, unspecified
CPT/HCPCS: 36415; 80307; 81002; 84436; 84439; 84443; 84481; 85025; 86703; 86762; 86803; 87340; 87491; 87591

== ENCOUNTER → 2020-05-14 10:24 | Outpatient (CLI) | payer OTHER, SELFPAY ==
[2018-07-27 05:11] VITALS: BMI 31.6
[2020-05-14 11:10] LABS: Hematocrit 34.8 % (37-47); Hemoglobin 11.4 g/dL (12.0-15.0); Mean Corp Hgb Conc 32.8 g/dL (32-36); Mean Corpuscular Hgb 32.8 pg (27.0-32.0); Mean Platelet Vol. 10.4 fl (6.2-12.0); Platelet Count 232 K/mm3 (150-450); RBC Distribution Width CV 13.8 % (11.6-14.6); Red Blood Count 3.48 M/mm3 (4.2-5.4); White Blood Count 8.4 K/mm3 (4.4-11.0)
[2020-05-14 11:29] LABS: Glucose Challenge Gest 1H 50g 136 mg/dL (70-140); Thyroid Stim Hormone (TSH) 1.58 uIU/mL (0.358-3.74)
== END ==
PROVIDERS: PCP Counselor Mental Health; Visit Provider Student in an Organized Health Care Education/Training Program
DX: Z34.83 Encounter for supervision of other normal pregnancy, third trimester (principal); R30.0 Dysuria
CPT/HCPCS: 36415; 82950; 84443; 85027; 87086

== ENCOUNTER → 2020-05-30 09:59 | Outpatient (CLI) | payer OTHER, SELFPAY ==
[2018-07-27 05:11] VITALS: BMI 31.6
== END ==
PROVIDERS: PCP Counselor Mental Health; Visit Provider Student in an Organized Health Care Education/Training Program
DX: Z34.83 Encounter for supervision of other normal pregnancy, third trimester (principal)
CPT/HCPCS: 87086; 87088

== ENCOUNTER → 2020-07-09 | Outpatient (CLI) | payer OTHER, SELFPAY ==
[2018-07-27 05:11] VITALS: BMI 31.6
== END | disposition home or self-care (01) ==
LOC: LABSPEC 13:47
PROVIDERS: PCP Counselor Mental Health; Visit Provider Student in an Organized Health Care Education/Training Program
DX: Z36.85 Encounter for antenatal screening for Streptococcus B (principal)
CPT/HCPCS: 87081

== ENCOUNTER → 2020-07-31 14:00 | Outpatient (CLI) | payer OTHER, SELFPAY ==
[2018-07-27 05:11] VITALS: BMI 31.6
== END ==
PROVIDERS: PCP Counselor Mental Health; Referring Provider Student in an Organized Health Care Education/Training Program; Visit Provider Student in an Organized Health Care Education/Training Program
DX: Z03.818 Encounter for observation for suspected exposure to other biological agents ruled out (principal)
CPT/HCPCS: 87635; C9803; U0005; U0003

== ENCOUNTER 2020-08-03 21:30 | Inpatient (IN) | payer OTHER, SELFPAY ==
[2018-07-27 05:11] VITALS: BMI 31.6
[2020-08-03 21:05] VITALS: PULSE 98; TEMP 36.7; O2SAT 98
[2020-08-03 21:06] VITALS: BP 120/77; PULSE 93
[2020-08-03 21:13] VITALS: BMI 32.9
[2020-08-03] MEDS: Lactated Ringers 1,000 ML 100 ML IV (21:57)
[2020-08-03 22:12] LABS: Absolute Lymphocyte Count 1.76 X10^3/uL (0.83-4.51); Absolute Neutrophil Count 6.6 X10^3/uL (2.0-7.7); Basophil# 0.03 X10^3/uL; Basophil% 0.3 % (0-1); Eosinophil# 0.16 X10^3/uL; Eosinophils% 1.7 % (0-5); Hematocrit 31.4 % (37-47); Hemoglobin 10.4 g/dL (12.0-15.0); Lymphocyte # 1.76 X10^3/ul (4.0); Lymphocyte % 18.5 % (19-41); Mean Corp Hgb Conc 33.1 g/dL (32-36); Mean Corpuscular Hgb 31.3 pg (27.0-32.0); Mean Corpuscular Volume 94.6 fL (81-99); Monocyte# 0.92 X10^3/uL; Monocyte% 9.7 % (0-10); NRBC Flagged by Analyzer 0 % (0-5); Neutrophil % 69.3 % (47-70); Platelet Count 208 K/mm3 (150-450); RBC Distribution Width CV 13.6 % (11.6-14.6); RBC Distribution Width SD 46.8 fl (35.1-43.9); Red Blood Count 3.32 M/mm3 (4.2-5.4); White Blood Count 9.5 K/mm3 (4.4-11.0)
--- NOTE | 2020-08-03 22:41 | PCM.HP.OB ---
- Problem List (1) 40 weeks gestation of Status: Acute (2) Previous section Status: Acute History Date of Admission: 08/03/20 Final MADHAV: 08/02/20 Final MADHAV Source: US <20 weeks Gestational age: 40 Weeks and 1 Days History of this : This is a 24 year-old, G [2], P [1001], at 40 1/7 weeks gestational age with hx previous section presenting with painful contractions. Problems/Plans: History of fainting re to unstable hypotension. Interested in . Severely allergic to shellfish. Hx PCOS, UTI, depression, hypothyroidism, unstable hypotension. Hypothyroid on synthroid Medical History: Medical History (Last Updated 08/03/20 @ 22:[address]a [address] MD) Depression F32.9 Hypotension I95.9 Hypothyroidism E03.9 PCOS (polycystic ovarian syndrome) E28.2 Surgical History: Surgical History (Last Updated 08/03/20 @ 22:[address] Sonya [address] MD) Previous section Z98.891 07/2018 - breech [place] teeth extracted K08.409 Allergies shellfish derived Adverse Reaction (Verified 08/03/20 21:14) Vomiting Home Medications: Home Medications Levothyroxine [Synthroid] 50 mcg PO DAILY 06/04/18 Pnv No.121/Iron/Folic Acid [ Multivitamin Tablet] 1 each PO DAILY 06/04/18 Sertraline HCl [Zoloft] 100 mg PO DAILY 06/04/18 Smoking Status: Never smoker Alcohol: None Substance Use Type: Anxiety Medications Number of Fetus(es): 1 NST - FHR Rate Baby A Baseline: 130 Variability:: Moderate Accelerations:: 15 x 15 Decelerations:: None NST Reactive:: Yes FHR Category:: Category I Uterine Activity:: 2/10 History Past Pregnancies: Past Pregnancies Delivery Date Name GA/ Weeks Outcome Route Wt Infant Sex Labor Length Anesthesia Delivery Location Provider FOB 07/27/2018 [place] 39.4 [place] breech LTCS 7lb6oz M 0 Spinal [facility] Sam Ye Labs: Mom's Labs & Results 08/03/20 08/03/20 21:57 21:57 WBC 9.5 RBC 3.32 L Hgb 10.4 L Hct 31.4 L MCV 94.6 MCH 31.3 MCHC 33.1 RDW Std Deviation 46.8 H RDW Coeff of [place] 13.6 Plt Count 208 MPV 11.0 Immature Gran % (Auto) 0.500 Neut % (Auto) 69.3 Lymph % (Auto) 18.5 L [place] % (Auto) 9.7 Eos % (Auto) 1.7 Baso % (Auto) 0.3 Absolute Neuts (auto) 6.6 Absolute Lymphs (auto) 1.76 Nucleated RBC % 0 Blood Type Pending Antibody Screen Pending Course Did the patient receive Yes care? Labs Blood Type: O RH: POSITIVE RPR/VDRL/Syphilis Nonreactive Rubella status Immune HbSAg Negative Date Done: 01/11/20 Chlamydia Negative Gonorrhea Negative HIV/AIDS Non-Reactive Group B Strep: Negative Current Obstetrical History Gestational Diabetes No Incompetent Cervix No Infertility No IUGR No Macrosomia No Hypertension/Pre-eclampsia No Placenta Previa/Abruption No PTL/PROM No Uterine anomaly No Oligohydramnios No Polyhydramnios No Multiple gestation No Past Medical History Asthma No Diabetes No Hypertension No Heart disease No Mitral valve prolapse No Neurologic/Seizure disorder/ No Migraines Kidney disease No Liver disease No Varicosities No Clotting disorders/Hx of DVT No Thyroid Dysfunction No Other medical diseases No Psychiatric disorders No Major trauma No Abnormal PAP smear No Sleep apnea Yes Mammogram in the last 2 years No Medications Taken During Dose/Freq.: [Antidepressant] 100mg Last Date/Time of Medication 08/03/2020 Taken: [Antidepressant] Reason for taking medication [ Depresssion Antidepressant] Social History Marital Status: Alleged father Ephraim Fontaine Hx Smoking No Smoking Status Never smoker Substance Use Type Anxiety Medications Expected Delivery Method: Describe any other labor & delivery plans:: 07/09/20 Growth US - EFW 2997g (6lb 10oz) - 56th% Number of Visits: 13 Physical Exam Vitals: Vital Signs Temp Pulse BP Pulse Ox 98.1 F 93 120/77 98 08/03/20 21:05 08/03/20 21:06 08/03/20 21:06 08/03/20 21:05 General: Alert, Oriented x3, Cooperative, No apparent distress HEENT: Atraumatic, Normocephalic Cardiovascular: Regular rate, Regular Rhythm, Normal S1, Normal S2 Lungs: Clear to auscultation, Normal air movement Abdomen: Soft, Non Tender, Non-Distended, Gravid Extremities:: No edema Neurological: Neuro grossly intact Estimated gestational size: Appropriate for gestational size Presentation: Cephalic Cervix Dilation (cm): 4.5 - per RN exam Yossi Chavira Station: -3 Effacement (%): 60 Assessment/Plan All Active Problems 40 weeks gestation of (Acute) Previous section (Acute) This is a 24 year-old, G [2], P [1], at 40 1/7 weeks gestational age, TOLAC, Cat I FHR -Reviewed previously signed TOLAC consents with discussion of risks for uterine rupture and need for emergent section. Pt desires to proceed. -EFW approx 3700g based on recent US -Pain management per patient request. -IVF given hx hypotension -GBS neg -Maternal and statuses reassuring
[2020-08-03 23:33] VITALS: TEMP 36.6; O2SAT 100
[2020-08-03 23:34] VITALS: BP 112/75
[2020-08-03 23:35] VITALS: PULSE 95; O2SAT 99
[2020-08-04] VITALS (71 sets, daily range): BP systolic 71–128; BP diastolic 48–79; PULSE 72–200; TEMP 36.3–37.7; O2SAT 92–100
[2020-08-04] MEDS: Lactated Ringers 500 ML 999 ML IV ×4 (01:42→16:38)
--- NOTE | 2020-08-04 01:57 | PCM.PN.BLA ---
Progress Note LABOR PROGRESS NOTE No complaints. AVSS GEN - NAD, AAO x 3 FRH 125, moderate variability, + accelerations, no decelerations TOCO 0-3/10 min - contractions detected better depending on maternal positioning SVE 3/50/-3, moderate and midposition A/P: 24y @ 40 2/7wga in latent labor, Cat I FHR - hx prior section -Discussed amniotomy vs. pitocin for labor augmentation. Pt understands that pitocin may contribute to small increased risk for uterine rupture. Following discussion, amniotomy performed. Fluid scant and blood tinged. -Maternal and statuses reassuring STROKE Vital Signs/Narrative: Vital Signs Temp Pulse BP Pulse Ox 08/04/20 01:46 105 H 98 08/04/20 01:45 97.8 F 100 110/72 08/04/20 00:41 92 113/78 08/04/20 00:40 98.3 F 08/03/20 23:35 95 99 08/03/20 23:34 112/75 08/03/20 23:33 97.9 F 100
[2020-08-04] MEDS: fentaNYL-bupivacaine (epidural) 100 ML BAG EPIDURAL ×3 (02:54→13:43)
[2020-08-04] MEDS: Ondansetron 4 MG/2 ML Vial IV (06:35)
[2020-08-04] MEDS: Oxytocin 30 units/NS 500 ml 30 UNITS/500 ML IV.SOLN IV (07:10)
--- NOTE | 2020-08-04 07:12 | PCM.PN.BLA ---
Progress Note LABOR PROGRESS NOTE No complaints. Had episode of lightheadedness and hypotension following epidural placement now resolved with bolus and ephedrine. She denies pain with contractions. AVSS GEN - NAD, AAO x 3 FHR 135, moderate variability, + accelerations, no decelerations TOCO 1/10 min SVE - recent exam per DONIS Mohan Rutt /-2 A/P: 24yo @ 40 2/7wga in latent labor, TOLAC, Cat I FHR s/p amniotomy -I advised pitocin augmentation with review of risks, benefits including risk for FHR changes potentially requiring section as well as potential increased risk for uterine rupture. Pt given opportunities to ask questions and questions answered to her satisfaction. Desires to proceed -IUPC in situ -Will start pitocin STROKE Vital Signs/Narrative: Vital Signs Temp Pulse BP Pulse Ox 08/04/20 07:07 100 100/66 08/04/20 06:57 93 96/70 08/04/20 06:52 97 103/67 08/04/20 06:47 107 H 100/59 L 08/04/20 06:44 98 100 08/04/20 06:42 96 101/64 08/04/20 06:39 101 H 104/68 99 08/04/20 06:35 116 H 111/75 08/04/20 06:34 73 94 08/04/20 06:25 76 98 08/04/20 06:24 78 71/48 L 08/04/20 06:23 98.0 F 08/04/20 04:31 90 83/54 L 08/04/20 04:16 77 85/56 L 08/04/20 04:15 98.4 F 88 99 08/04/20 03:27 90 113/62 08/04/20 03:19 90 103/77 08/04/20 03:17 108 H 98 08/04/20 03:14 93 102/69
[2020-08-04] MEDS: Lactated Ringers 1,000 ML 200 ML IV ×2 (07:16→12:16)
[2020-08-04] MEDS: Amnioinfusion- 0.9% NS 1,000 ML IV.SOLN. 300 ML INTRA-UTER (14:24)
--- NOTE | 2020-08-04 16:00 | PCM.PN.BLA ---
STROKE Vital Signs/Narrative: Vital Signs Temp Pulse BP Pulse Ox 08/04/20 15:20 99.0 F 97 92/51 L 98 08/04/20 14:25 98.3 F 200 H 100 08/04/20 14:23 93 98/67 08/04/20 13:51 98.4 F 100 08/04/20 13:48 94 108/69 08/04/20 13:05 98.7 F 93 100/68 100 08/04/20 12:11 98.2 F 93 92/50 L 100 08/04/20 12:09 92 100
[2020-08-04] MEDS: Mag Hydrox/Al Hydrox/Simeth 30 ML UDC PO (16:13)
[2020-08-04] MEDS: Amnioinfusion- 0.9% NS 1,000 ML IV.SOLN. INTRA-UTER (16:52)
--- NOTE | 2020-08-04 17:02 | PCM.PN.BLA ---
Progress Note Labor progress note Patient reports some pressure but otherwise comfortable with epidural AVSS General no acute distress, alert and oriented to person place and time SVE fully dilated 0 station, +1 station with contractions [place] 3-4 per 10 minutes FHR 130, moderate variability, deepening variable decelerations shaan down to the 50s beats per minute A/P: 24-year-old G2, P1 at 40-2/7 weeks gestational age, category 2 heart rate tracing -Pitocin discontinued, patient repositioned into all fours with resolution of deepening variable decelerations. Started amnioinfusion for smaller variable decelerations occurring with improvement of heart rate tracing. We will plan to observe for approximately 15 to 20 minutes without deep variable decelerations and then reevaluate to initiate pushing. Discussed above plan of care with patient and spouse. STROKE Vital Signs/Narrative: Vital Signs Temp Pulse BP Pulse Ox 08/04/20 16:18 111 H 99/64 08/04/20 16:16 98.5 F 100 08/04/20 15:20 99.0 F 97 92/51 L 98 08/04/20 14:25 98.3 F 200 H 100 08/04/20 14:23 93 98/67 08/04/20 13:51 98.4 F 100 08/04/20 13:48 94 108/69 08/04/20 13:05 98.7 F 93 100/68 100
[2020-08-04] MEDS: Oxytocin 30 units/NS 500 ml 30 UNITS/500 ML IV.SOLN 334 UNITS IV (17:53)
--- NOTE | 2020-08-04 18:54 | PCM.OPRPT ---
Problem List (1) 40 weeks gestation of Status: Acute (2) Previous section Status: Acute (3) (vaginal after ) Status: Acute Vaginal Delivery Maternal Presentation: - - Latent labor Method of Induction: Pitocin, Amniotomy Amniotic Membrane Rupture Type: Artificial Rupture of Membrane time: 08/04/20 Amniotic Fluid Description: Lightly stained meconium Final MADHAV: 08/02/20 Final MADHAV Source: US <20 weeks Gestational age: 40 Weeks and 6 Days doctor who attended delivery (if requested by OB): Jonatan Us Date of Procedure: 08/04/20 Pre-Operative Diagnosis: 40 2/7 wga, TOLAC Post-Operative Diagnosis: 40 2/7wga, Surgery/ Procedure Performed: Spontaneous Vaginal Delivery Anesthesiologist: Quentin Mendes Type of Anesthesia: Epidural Description of Procedure: Patient was FD/+3 station with Cat II FHR with moderate variability on my arrival. She pushed to deliver a vigorous female in OA through a nuchal chord. The infant was placed on the maternal abdomen and further attended by nursery personnel and the Pediatric Hospitalist. The cord was doubly clamped and cut at approximately 3 minutes of life. Cord blood was obtained. Venous cord blood was obtained only as arterial blood was unable to be recovered. The placenta delivered spontaneously and appeared intact after inspection. A complex stellate vaginal laceration including bilateral sulcal and labial laceration with separation of the perineum from the vagina as well as superficial perineal midline laceration was identified with heavy bleeding from the sulcal apices. The laceration was repaired using 3-0 Vicryl Rapide with much improved hemostasis however the vagino-perineal suture line that met the left labia repair continued to ooze despite additional figure of eight suture placement and compression thus saline moistened vaginal packing was placed. Sponge and needle counts were correct. Infant weight 3700g Presentation: Vertex Placental Delivery Description: Spontaneous Placenta Disposition: [facility] Cord Vessel Description: 3 Vessels Nuchal Cord Compression: With compression Cord Gases drawn per routine: VBG Cord Entanglement: Around neck x 1, tight Estimated Blood Loss: 650 ml Infant A gender: Female (1 minute): 8 (5 minute): 9 Episiotomy Description: None Laceration: Midline, Perineal Extension/lac, Vaginal Extension/lac, 1st degree Medications given after delivery: IV Pitocin Complications: None
[2020-08-04] MEDS: Ibuprofen 600 MG Tablet PO (20:09)
[2020-08-04] MEDS: Dibucaine 30 GM Tube 1 APPLIC TOPICAL (20:09)
[2020-08-04] MEDS: 0.9% Saline Lock 10 ML Syringe IV (20:31)
--- NOTE | 2020-08-04 22:00 | NURSING ---
Spoke With Dr. Mcdaniels regarding swollen perineum/vaginal area and asked if aguayo catheter could remain in for a while until swelling improves. she states yes that the aguayo can be removed when the vaginal packing is removed.
[2020-08-04] MEDS: Acetaminophen 500 MG Tablet 1000 MG PO (22:37)
[2020-08-05 00:30] VITALS: BP 94/60; PULSE 110; RESP 16; TEMP 36.6
--- NOTE | 2020-08-05 01:51 | NURSING ---
Notified Dr. Mcdaniels swelling is improving some. RN asked if after MD's labor pt delivers the packing and aguayo can be removed. MD and Rn in agreeance.
[2020-08-05 03:00] VITALS: BP 95/61; PULSE 85; RESP 18; TEMP 36.4
[2020-08-05] MEDS: Ibuprofen 600 MG Tablet PO ×4 (03:19→22:14)
--- NOTE | 2020-08-05 04:55 | DCINST_ITS ---
<Bryan Lane,Summer - Last Filed: 08/05/20 04:55> Discharge Diet: No Restrictions Discharge Activity: Return to Normal Activity, May Shower, May Take a Tub Bath May resume sexual activity in: 6 weeks Lifting Restrictions: 20-25 lb Call your doctor if your incision/area has: Continuous Slow Oozing, Increased Pain/ Swelling, Increased Redness Call your doctor if you observe: Fever of 101 or Higher, Inability to urinate, Inability to have a bowel movement, Using more than one pad per hour, Shortness of breath, Calf discomfort, Uncontrolled pain Suture Line Care: Avoid Pulling/Pushing Additional Instructions: If you experience any of the following, contact your healthcare provider. * Bleeding that soaks a pad every hour for 2 hours * Fever 100.4 or higher * Unrelieved incision or abdominal pain * Swelling, redness, discharge or bleeding from your incision or episiotomy site * Your incision begins to separate * Problems urinating (including inability to urinate or burning while urinating). * Visual changes * Severe headache * Flu-like symptoms * Pain or redness in one of both of your breasts * Pain, warmth, tenderness or swelling in your legs, especially the calf area * Frequent nausea and vomiting * Symptoms of depression or anxiety If you experience any of the following, call 911 or go to the nearest Emergency Room. * Chest pain * Problems breathing * Seizure activity * Partial or complete paralysis of a body part, slurred speech, weakness or drooping of the face, or a sudden inability to walk or hold your balance Allergies/Adverse Reactions: Allergies shellfish derived Adverse Reaction (Verified 08/03/20 21:14) Vomiting Medications to take at Discharge Levothyroxine [Synthroid] 50 mcg PO DAILY 06/04/18 Pnv No.121/Iron/Folic Acid [ Multivitamin Tablet] 1 each PO DAILY 06/04/18 Sertraline HCl [Zoloft] 100 mg PO DAILY 06/04/18 0.9% Saline Lock 10 - 40 ml IV X1 PRN syringe 08/03/20 Acetaminophen [Tylenol] 500 - 1,000 mg PO Q6H PRN PRN tab 08/03/20 Mag Hydrox/Al Hydrox/Simeth [Mylanta II] 15 - 30 ml PO Q4H PRN PRN udc 08/03/20 Ondansetron [Zofran] 4 mg IV Q4H PRN PRN vial 08/03/20 Sodium Citrate/Citric Acid [Bicitra] 30 ml PO X1 PRN ml 08/03/20 Please Follow Up With: Gissel Sampson, When: 6 weeks Primary Care Physician: Joanna Escoto MD [Primary Care Provider] - Test Results: Test results from this visit will be discussed in further detail at your follow- up appointment, if applicable. <Gissel Sampson - Last Filed: 08/06/20 08:13> Additional Instructions: If you experience any of the following, contact your healthcare provider. * Bleeding that soaks a pad every hour for 2 hours * Fever 100.4 or higher * Unrelieved incision or abdominal pain * Swelling, redness, discharge or bleeding from your incision or episiotomy site * Your incision begins to separate * Problems urinating (including inability to urinate or burning while urinating). * Visual changes * Severe headache * Flu-like symptoms * Pain or redness in one of both of your breasts * Pain, warmth, tenderness or swelling in your legs, especially the calf area * Frequent nausea and vomiting * Symptoms of depression or anxiety If you experience any of the following, call 911 or go to the nearest Emergency Room. * Chest pain * Problems breathing * Seizure activity * Partial or complete paralysis of a body part, slurred speech, weakness or drooping of the face, or a sudden inability to walk or hold your balance When: 2 week telehealth Test Results: Test results from this visit will be discussed in further detail at your follow- up appointment, if applicable.
[2020-08-05] MEDS: Levothyroxine 50 MCG Tablet PO (05:26)
[2020-08-05 05:59] LABS: Hematocrit 24.6 % (37-47); Hemoglobin 8.2 g/dL (12.0-15.0); Mean Corp Hgb Conc 33.3 g/dL (32-36); Mean Corpuscular Hgb 31.9 pg (27.0-32.0); Mean Corpuscular Volume 95.7 fL (81-99); Platelet Count 171 K/mm3 (150-450); RBC Distribution Width CV 13.9 % (11.6-14.6); RBC Distribution Width SD 48.4 fl (35.1-43.9); Red Blood Count 2.57 M/mm3 (4.2-5.4); White Blood Count 17.7 K/mm3 (4.4-11.0)
[2020-08-05 08:00] VITALS: BP 104/66; PULSE 102; RESP 16; TEMP 36.2
--- NOTE | 2020-08-05 08:34 | PN.OBGYN_ITS ---
Patient Problems: Active and Suspected Problems (Last Updated 08/03/20 @ 22:[address] Sonya Lane MD) 40 weeks gestation of (Acute) Previous section (Acute) (vaginal after ) (Acute) Subjective: PPD#1 Pt feeling well. Sore but improves with motrin. Lochia minimal after packing removal. going well. - Physical Exam Vitals/I&O's: Vital Signs Temp Pulse Resp BP Pulse Ox 97.6 F L 85 18 95/61 97 08/05/20 03:00 08/05/20 03:00 08/05/20 03:00 08/05/20 03:00 08/04/20 20:53 Oxygen Delivery Method Room Air Weight: 71.5 kg Body Mass Index (BMI) 32.9 Intake and Output for Last 24 Hours 08/03/20 08/04/20 08/05/20 23:59 23:59 23:59 Intake Total 305 / 305 7831.37 / 7831.37 1200 / 1200 Output Total 600 / 600 5600 / 5600 700 / 700 Balance -295 / -295 2231.37 / 2231.37 500 / 500 General: Alert, Oriented x3, No apparent distress HEENT: Atraumatic, Normocephalic Neck: Supple Lungs: Normal air movement Cardiovascular: Regular rate Abdomen: Soft - uterus 2 cm below umbilicus Extremities: No edema Neurological: Cranial nerves II-XII grossly intact Psych/Mental Status: Normal Affect, Appropriate Laboratory Results 08/05/20 05:25: WBC 17.7 H, RBC 2.57 L, Hgb 8.2 L, Hct 24.6 L, MCV 95.7, MCH 31.9, MCHC 33.3, RDW Std Deviation 48.4 H, RDW Coeff of [place] 13.9, Plt Count 171, MPV 11.0 Current Medications Acetaminophen (Acetaminophen 500 Mg Tablet) 1,000 mg PO Q8H PRN PRN PRN Reason: Pain Score 1-10 Last Admin: 08/04/20 22:37 Dose: 1,000 mg Documented by: Bisacodyl (Bisacodyl 10 Mg Suppository) 10 mg RC UD PRN PRN Reason: If no BM Dibucaine (Dibucaine 30 Gm Tube) 1 applic TOPICAL TID PRN PRN; Protocol PRN Reason: Discomfort Last Admin: 08/04/20 20:09 Dose: 1 applicatio Documented by: Hydrocortisone (Hydrocortisone 2.5% Crm) 1 applic TOPICAL TID PRN PRN; Protocol PRN Reason: Discomfort Ibuprofen (Ibuprofen 600 Mg Tablet) 600 mg PO Q6H PRN PRN PRN Reason: Pain Score 1-10 Last Admin: 08/05/20 03:19 Dose: 600 mg Documented by: Levothyroxine Sodium (Levothyroxine 50 Mcg Tablet) 50 mcg PO DAILY@0600 [facility] Last Admin: 08/05/20 05:26 Dose: 50 mcg Documented by: Methylergonovine Maleate (Methylergonovine 0.2 Mg/Ml Ampul) 0.2 mg IM X1 PRN PRN Reason: Excess bleeding/uterine atony Ondansetron HCl (Ondansetron 4 Mg/2 Ml Vial) 4 mg IV Q4H PRN PRN PRN Reason: NAUSEA Last Admin: 08/04/20 06:35 Dose: 4 mg Documented by: Multivit/Folic Acid/Iron ( Vits Tablet) 1 tablet PO DAILY@1200 [facility] Senna/Docusate Sodium (Senna/Docusate Sodium 1 Tablet) 1 - 2 tablet PO DAILY PRN PRN PRN Reason: Constipation Sertraline HCl (Sertraline 100 Mg Tablet) 100 mg PO DAILY [facility] Simethicone (Simethicone 80 Mg Tablet) 80 mg PO PCHS PRN PRN Reason: Indigestion/Stomach pain Sodium Chloride (0.9% Saline Lock 10 Ml Syringe) 5 - 15 ml IV UD PRN PRN Reason: SALINE FLUSH Last Admin: 08/04/20 20:31 Dose: 10 ml Documented by: Medical Necessity - Tobacco Use Smoking Status: Never smoker Assessment/Plan All Active Problems (Last Updated 08/03/20 @ 22:[address] Sonya Lane MD) 40 weeks gestation of (Acute) Previous section (Acute) (vaginal after ) (Acute) PPD1 s/p , successful . Extensive vaginal laceration, packing removed. Lochia now minimal. Breast feeding. Home tomorrow.
[2020-08-05] MEDS: Senna/Docusate Sodium 1 Tablet PO (09:23)
[2020-08-05] MEDS: Prenatal Vits Tablet 1 TABLET PO (09:23)
[2020-08-05] MEDS: Sertraline 100 MG Tablet PO (09:23)
[2020-08-05 12:00] VITALS: BP 96/62; PULSE 114; RESP 16; TEMP 36.4
[2020-08-05 15:48] VITALS: BP 96/60; PULSE 104; RESP 16; TEMP 36.3
[2020-08-05 20:13] VITALS: BP 103/67; PULSE 113; RESP 14; TEMP 36.6
[2020-08-05] MEDS: Acetaminophen 500 MG Tablet 1000 MG PO (20:20)
[2020-08-06 01:01] VITALS: BP 97/60; PULSE 94; RESP 16; TEMP 36.9
[2020-08-06] MEDS: Levothyroxine 50 MCG Tablet PO (06:14)
[2020-08-06] MEDS: Ibuprofen 600 MG Tablet PO (06:14)
[2020-08-06 07:33] VITALS: BP 96/61; PULSE 99; RESP 16; TEMP 36.5
--- NOTE | 2020-08-06 08:10 | PCM.PN.OB ---
Patient Problems: Active and Suspected Problems (Last Updated 08/03/20 @ 22:[address] Sonya Lane MD) 40 weeks gestation of (Acute) Previous section (Acute) (vaginal after ) (Acute) Subjective: day 2. Lochia minimal. Feeling well. - Physical Exam Vitals/I&O's: Vital Signs Temp Pulse Resp BP Pulse Ox 97.7 F L 99 16 96/61 97 08/06/20 07:33 08/06/20 07:33 08/06/20 07:33 08/06/20 07:33 08/04/20 20:53 Oxygen Delivery Method Room Air Weight: 71.5 kg Body Mass Index (BMI) 32.9 Intake and Output for Last 24 Hours 08/04/20 08/05/20 08/06/20 23:59 23:59 23:59 Intake Total 7831.37 / 7831.37 1200 / 1200 Output Total 5600 / 5600 1700 / 1700 Balance 2231.37 / 2231.37 -500 / -500 General: Alert, No apparent distress HEENT: Atraumatic, Normocephalic Lungs: Normal air movement Cardiovascular: Regular rate Abdomen: Soft - Uterus 2 cm below umbilicus Extremities: Edema - Trace Neurological: Cranial nerves II-XII grossly intact Psych/Mental Status: Normal Affect, Appropriate Current Medications Acetaminophen (Acetaminophen 500 Mg Tablet) 1,000 mg PO Q8H PRN PRN PRN Reason: Pain Score 1-10 Last Admin: 08/05/20 20:20 Dose: 1,000 mg Documented by: Bisacodyl (Bisacodyl 10 Mg Suppository) 10 mg RC UD PRN PRN Reason: If no BM Dibucaine (Dibucaine 30 Gm Tube) 1 applic TOPICAL TID PRN PRN; Protocol PRN Reason: Discomfort Last Admin: 08/04/20 20:09 Dose: 1 applicatio Documented by: Hydrocortisone (Hydrocortisone 2.5% Crm) 1 applic TOPICAL TID PRN PRN; Protocol PRN Reason: Discomfort Ibuprofen (Ibuprofen 600 Mg Tablet) 600 mg PO Q6H PRN PRN PRN Reason: Pain Score 1-10 Last Admin: 08/06/20 06:14 Dose: 600 mg Documented by: Levothyroxine Sodium (Levothyroxine 50 Mcg Tablet) 50 mcg PO DAILY@0600 [facility] Last Admin: 08/06/20 06:14 Dose: 50 mcg Documented by: Methylergonovine Maleate (Methylergonovine 0.2 Mg/Ml Ampul) 0.2 mg IM X1 PRN PRN Reason: Excess bleeding/uterine atony Ondansetron HCl (Ondansetron 4 Mg/2 Ml Vial) 4 mg IV Q4H PRN PRN PRN Reason: NAUSEA Last Admin: 08/04/20 06:35 Dose: 4 mg Documented by: Multivit/Folic Acid/Iron ( Vits Tablet) 1 tablet PO DAILY@1200 [facility] Last Admin: 08/05/20 09:23 Dose: 1 tablet Documented by: Senna/Docusate Sodium (Senna/Docusate Sodium 1 Tablet) 1 - 2 tablet PO DAILY PRN PRN PRN Reason: Constipation Last Admin: 08/05/20 09:23 Dose: 1 tablet Documented by: Sertraline HCl (Sertraline 100 Mg Tablet) 100 mg PO DAILY [facility] Last Admin: 08/05/20 09:23 Dose: 100 mg Documented by: Simethicone (Simethicone 80 Mg Tablet) 80 mg PO PCHS PRN PRN Reason: Indigestion/Stomach pain Sodium Chloride (0.9% Saline Lock 10 Ml Syringe) 5 - 15 ml IV UD PRN PRN Reason: SALINE FLUSH Last Admin: 08/04/20 20:31 Dose: 10 ml Documented by: Medical Necessity - Tobacco Use Smoking Status: Never smoker Assessment/Plan All Active Problems (Last Updated 08/03/20 @ 22:[address] Sonya [address] MD) 40 weeks gestation of (Acute) Previous section (Acute) (vaginal after ) (Acute) 24-year-old day 2 status post successful . Extensive laceration, packing removed with minimal lochia at this time. Home today.
[2020-08-06] MEDS: Sertraline 100 MG Tablet PO (10:19)
[2020-08-06] MEDS: Prenatal Vits Tablet 1 TABLET PO (10:19)
== END 2020-08-06 10:40 | disposition home or self-care (01) | DRG 807 ==
LOC: WPOUT 21:39 → WP 21:39
PROVIDERS: Admitting Provider Obstetrics & Gynecology; PCP Counselor Mental Health; Visit Provider Obstetrics & Gynecology
DX: O34.219 Maternal care for unspecified type scar from previous cesarean delivery (principal); Z37.0 Single live birth; Z3A.40 40 weeks gestation of pregnancy; E03.9 Hypothyroidism, unspecified; O99.284 Endocrine, nutritional and metabolic diseases complicating childbirth; F32.9 Major depressive disorder, single episode, unspecified; O99.344 Other mental disorders complicating childbirth; O77.0 Labor and delivery complicated by meconium in amniotic fluid; O76 Abnormality in fetal heart rate and rhythm complicating labor and delivery; O70.0 First degree perineal laceration during delivery; O69.1XX0 Labor and delivery complicated by cord around neck, with compression, not applicable or unspecified
CPT/HCPCS: 59025; 59050; 76815; 85025; 85027; 86850; 86900; 86901; 99218; J7030; J7120; A4216; G0378; J2405

== ENCOUNTER → 2020-09-23 | Outpatient (CLI) | payer OTHER, SELFPAY ==
[2020-09-27 20:42] LABS: HPV APTIMA, High Risk Negative (Negative); HPV Reflexed? YES, CHARGE PATIENT
== END | disposition home or self-care (01) ==
LOC: LABSPEC 09:26
PROVIDERS: PCP Counselor Mental Health; Visit Provider Student in an Organized Health Care Education/Training Program
DX: Z12.4 Encounter for screening for malignant neoplasm of cervix (principal)
CPT/HCPCS: 87624; 88175; G0145